=== PATIENT | male | born 1965 | race Caucasian/White ===

== ENCOUNTER 2018-05-10 09:07 | Outpatient (CLI) | payer BC, SELFPAY ==
--- NOTE | 2018-05-10 08:59 | DI.RAD_ITS ---
SYMPTOM/DIAGNOSIS: ANNUAL F/U TKA RIGHT KNEE: The patient is status post TKA. The prosthesis in excellent position. Surrounding bone intact with no evident interval change when compared with prior images.
== END 2018-05-10 09:27 ==
PROVIDERS: PCP Family Medicine; Visit Provider Student in an Organized Health Care Education/Training Program
DX: Z96.651 Presence of right artificial knee joint (principal); Z47.1 Aftercare following joint replacement surgery
CPT/HCPCS: 73560

== ENCOUNTER 2018-11-28 12:13 | Outpatient (CLI) | payer BC, SELFPAY ==
[2018-11-28 13:59] LABS: Anion Gap 9.4 mmol/L (3-11); BUN 10 mg/dL (7-18); CO2 27.6 mmol/L (21.0-32.0); CREATININE 0.95 mg/dL (0.70-1.30); Calcium 8.3 mg/dL (8.5-10.1); Calculated LDL 102 mg/dL; Chloride 106 mmol/L (98-107); Cholesterol 160 mg/dL (50-200); Glucose 100 mg/dL (70-100); HDL Cholesterol 42 mg/dL (40-60); Potassium 3.6 mmol/L (3.5-5.1); Sodium 143 mmol/L (136-145); Triglyceride 84 mg/dL (30-150)
== END 2018-11-28 12:33 ==
PROVIDERS: PCP Family Medicine; Visit Provider Family Medicine
DX: I10 Essential (primary) hypertension (principal)
CPT/HCPCS: 36415; 80048; 80061

== ENCOUNTER 2019-03-08 12:43 | Day surgery (SDC) | payer BC, SELFPAY ==
[2019-03-08 13:03] VITALS: BP 152/102; PULSE 60; RESP 16; TEMP 36.5; O2SAT 100
[2019-03-08] MEDS: Lactated Ringers 1,000 ML 80 ML IV (13:14)
--- NOTE | 2019-03-08 14:31 | BOWEL_PTH ---
PATIENT: Serafin Mayes LOC: [facility] U#:[id number] AGE/SX: 53/M ROOM: RE03/08/[address]: Cyn Harvey : 1965 BED: DIS: 03/08/2019 SPEC #: [id number] RECD: 03/08/19 17:15 STATUS: JEB REJaneth #: [id number] ADILIA: 03/08/19 14:[address]: Cyn Harvey DEPT: Surgical Specimen RECD BY: Diana Henry ENTERED: 03/08/19 17:20 SP TYPE: Bowel OTHR DR: Sebastian Brand MD Tissues: 1 - BIOPSY BOWEL Procedures: GROSS AND MICRO LEVEL 4 Comments: [id number]
--- NOTE | 2019-03-08 14:39 | W.COLOREPORT ---
Date of service: 03/08/19 Time of Service: 14:39 Colonoscopy Report Date of procedure: 03/08/19 Pre-op diagnosis general: crc screen Post-op diagnosis procedure note: other (diverticula. sm polyp in rectum ) Procedure: CE bx of rectum Surgeon: Cyn Harvey Anesthesia proc note operative: GETA Estimated blood loss (mL): 0 Pathology: other Complications: None Prep: Miralax/Dulcolax Retraction Time: 10 mins Procedure Description: After informed consent was obtained the patient was taken to the procedure room and placed in a left decubitous position. Monitors were applied and a time out was done. The patients name, date of , procedure, allergies to medications and metal in their body was reviewed. The patient was then sedated. Once sedated and comfortable a rectal exam was done. External exam was normal. Internal exam revealed a normal sphincter tone and no palpable masses. The prostate nl. The scope was then introduced and retrofelexed. No internal hemorrhoids were identified. The scope was then advanced to the cecum w/out difficulty. The TI and appendiceal orifice were identified. The prep was good. The scope was then slowly retracted over 10 minutes back into the rectum. No AVMs were identified. The mucosa was pink and healthy. He does have a few small scattered diverticuli in the sigmoid colon. There is no signs of active bleeding or infection. He did have one small polyp that was noted in the rectum. This was visualized under NBI, and there was some question of increased vascularity, so a biopsy was performed and it was removed. The specimen history retrieved and passed off the field. No bleeding was noted. The scope was removed and the patient was woken up and taken back to Same day surgery in stable condition. The patient tolerated the procedure well and there were no immediate complications. Follow up: The patient should follow up in 5-10 yrs- path pd, unless they develop changes in bowel habits or other new gastrointestinal complaints.
--- NOTE | 2019-03-08 14:42 | W.PM.DSUDISC ---
Discharge Plan Disposition Patient Disposition: HOME Condition: Good Discharge Details Reason For Visit: colon scope Attending Provider: Cyn Harvey Primary Care Provider: Sebastian Brand Home Meds and New Rx's Prescriptions: Continued amlodipine-benazepril 10-40 mg capsule 1 cap PO DAILY Qty: 90 RF: 4 metoprolol tartrate 50 mg tablet 50 mg PO BID Qty: 180 RF: 4 Discontinued polyethylene glycol 3350 17 gram/dose powder 238 g PO ONCE Qty: 238 RF: 0 bisacodyl [Dulcolax (bisacodyl)] 5 mg tablet,delayed release (DR/EC) 5 mg PO ONCE Qty: 4 RF: 0 Discharge Instructions Instructions: High Fiber Diet (GEN), Diverticulosis Diet (GEN), Diverticulosis (GEN) Additional Instructions: Findings: minor diverticula sm polyp in rectum removed- will send a letter w/ results in 2-3 wks Follow up: repeat scope in 5-10 yrs path pd. Please call if you develop: fevers >101.5 Nausea or Vomiting Abdominal pain that is not transient DAY SURGERY UNIT POST COLONOSCOPY INSTRUCTIONS 1. Because there will be medication in your system for the next 24 hours, you may feel a little sleepy. Your coordination will be affected. Therefore: a. Do not drive or operate dangerous equipment for 24 hours. b. Do not drink alcohol beverages for 24 hours (not even beer). c. Plan to go home and rest for the day. 2. Generally there are no restrictions on your activity after a day or so has gone by, but you may feel a bit fatigued for a few days. 3 After you arrive home you may have a light meal and return to a normal diet as you can tolerate it without feeling sick to your stomach. 4. After surgery, you may feel pain or discomfort. This should be only transient, but if it persists please contact your doctor. 5. If there are any questions regarding the findings of your procedure, please feel free to contact your doctor. 6. If you are unable to contact your doctor with a problem, contact the hospital at [phone]. 7. Continue all your regular medications unless directed otherwise. I understand the above instructions and have no questions. Signature of Patient or Responsible Adult Escort Date/Time Name of Responsible Adult Escort Signature of Nurse Date/Time Activity:: No strenuous activity, no lifting over 20 pounds, no driving x24 hours. Diet:: small light meals x24 hours Discharge Orders Discharge Orders: Discharge Order (Routine); Ordered 03/08/19 Ordered By: Cyn Harvey DS: Diagnosis Discharge Diagnosis (1) Diverticula of colon: Status: Acute
[2019-03-08 15:08] VITALS: BP 143/92; PULSE 55; RESP 16; TEMP 36.2; O2SAT 100
== END 2019-03-08 15:50 | disposition home or self-care (01) ==
PROVIDERS: PCP Family Medicine; Visit Provider Surgery
PROC: 0DJD8ZZ Inspection of Lower Intestinal Tract, Via Natural or Artificial Opening Endoscopic (ICD-10-PCS; CPT 45378; principal; 2019-03-08 13:45)
DX: Z12.11 Encounter for screening for malignant neoplasm of colon (principal); K57.30 Diverticulosis of large intestine without perforation or abscess without bleeding; I10 Essential (primary) hypertension; K62.1 Rectal polyp
CPT/HCPCS: 45380; 88305; J2704

== ENCOUNTER 2019-04-22 04:23 | Emergency (ER) | payer BC, SELFPAY ==
[2019-04-22] VITALS (16 sets, daily range): BP systolic 130–159; BP diastolic 85–96; PULSE 61–72; RESP 15–20; TEMP 35.2–36.9; O2SAT 96–98
--- NOTE | 2019-04-22 04:15 | DI.CT_ITS ---
EXAM: CT THORAX ABD/PEL CTA CLINICAL HISTORY: chest and abdominal pain TECHNIQUE: CT angiography of the chest, abdomen and pelvis was performed with bolus infusion of 125 cc of Omnipaque 350. Axial CT angiography was performed with multi-slice acquisition and multi-planar and/or 3D reconstruc tions. COMPARISON: ABD PELVIS WITH CONTRAST from 06/12/2017 FINDINGS: The lungs are clear with incidental 3 millimeter right upper lobe pulmonary nodule, no follow up rec ommended in a low risk individual. No pleural effusion. No evidence of pulmonary embolic disease. No thoracic aortic dissection. No pleural effusion. No mediastinal or hilar adenopathy. Tracheobro nchial tree appears intact. Small, low-attenuation stable hepatic lesions are noted, unchanged from 06/12/2017. Small presumed b ilateral renal cysts noted. No other focal hepatic or renal abnormality seen. Gallbladder and bile ducts are CT normal. Pancreas is unremarkable. Spleen shows unremarkable early arterial phase patte rn of enhancement. No abdominal aortic aneurysm or dissection. Major branches of the abdominal aorta appear normal. No abdominal or pelvic adenopathy. Normal appendix. No significant abdominal wall hernia. No focal b owel pathology. Question increased perivesical/Mahsa prostatic increased fat attenuation, possible inflammatory proces s, please correlate clinically. IMPRESSION: No evidence of acute vascular abnormality of the chest, abdomen or pelvis.
--- NOTE | 2019-04-22 04:29 | ED.GENADUL_ITS ---
Discharge Plan Disposition Patient Disposition: HOME Condition: Stable Discharge Details Chief Complaint: Chest Pain Clinical Impression: Chest pain Primary Care Provider: Sebastian Brand ED Provider: Jeferson Toscano Home Meds and New Rx's Prescriptions: New famotidine 20 mg tablet 20 mg PO DAILY Qty: 14 RF: 0 Continued amlodipine-benazepril 10-40 mg capsule 1 cap PO DAILY Qty: 90 RF: 4 metoprolol tartrate 50 mg tablet 50 mg PO BID Qty: 180 RF: 4 Discharge Instructions Instructions: Chest Pain (ED) Additional Instructions: Please follow-up for stress testing as we discussed. The diagnostic imaging service asks that you hold your metoprolol for 24 hours prior to the test. We will ask our care management team to make you a follow-up appointment with Dr. Brand in clinic. Take famotidine as prescribed for 2 weeks. Your blood work and ekg's did not reveal any findings to suggest a heart attack. The cat scan only showed inflammation around the bladder, please follow up with your primary care provider within a week for the chest pain and inflammation if you have severe worsening pain, feel more ill or have worsening shortness of breath return to the emergency department Medical Decision Making <Feliberto López MD - Last Filed: 04/22/19 07:29> 53 yo male with hx of htn, no prior cardiac history, former smoker who quit 28 years ago, who comes in with chest pain and epigastric pain that woke him up from sleep an hour and a half ago. He had similar pain to this a few years ago per patient and had a negative workup. Denies any recent fevers, cough, shortness of breath. HE states the pain is like a presure but also feels like he has gas. He has epigastric tenderness without guarding otherwise no tenderness in the abdomen. Speaking in full sentences and appearsin no distress, HD stable. His heart score is 3, ekg unremarkable, will send troponin. He has no hypoxia, tachycardia or evidnece of dvt on exam so doubt PE. Will obtain CTA to eval for possible dissection, and evaluate for abdominal pathology such as cholecystitis and sbo though exam not consistent with this pt remains stable and feels better after gi cocktail and asa. labs unremarkable and troponin negative. I offered admission for observation but patient declined. HE is willing to stay to have second troponin. Will continue to monitor here. His CTA only showed nonspecific stranding aroud the bladder. He denies any urina ry symptoms, will obtain ua and urine culture, advised patient of these findings and that he needs to f/u with his pcp for further eval if UA here negative pt signed out to oncoming provider to f/u on repeat troponin, pt remains stable without symptoms, drinking without issues Differential Diagnosis Differential Diagnosis: acs, dissection, pancreatitis Medical Records Medical records reviewed: Yes I reviewed the patient's medical records. Imaging Data Radiologic Study: Attestation: I personally reviewed and interpreted this imaging study as follows: Imaging: CT Scan Radiologist's impression: IMPRESSION: 1. No aortic aneurysm or dissection. 2. Stranding of fat about bladder, seminal vesicles and prostate consistent with the presence of inflammatory or infectious process involving 1 or all 3 of the organs. The most likely etiologies would be cystitis and prostatitis Lab Data Lab results reviewed: Yes I reviewed the patient's lab results. ECG Data Attestation: I personally reviewed and interpreted this ECG (s) as follows: Prior ECG tracings: not available for review Interpretation: sinus rhythm, rate of 60, pr 160qtc 404, no acute st t wave ischemic findings <Jeferson Toscano MD - Last Filed: 04/22/19 08:36> Received signout from Dr. López. Please see his note regarding details of the history, presentation, plan of care. Repeat EKG obtained at 7:57 AM. Normal sinus rhythm, rate of 67, the QRS is narrow, there is no ST segment elevation, the QTC is 422. Repeat troponin obtained and negative. Patient's pain improved with treatment for GERD. As per Dr. López, the patient should follow-up regarding miscellaneous findings on final CT report. Discussed with him that he indeed has cardiac risk factors and is been greater than 10 years since his last stress test which he states was in [facility]. Will order an outpatient stress test for him, we will ask him to follow-up with Dr. Brand in clinic for recheck and results of stress test. I will place him on famotidine for 2 weeks for GERD symptoms. He understands to seek urgent reevaluation for any recurrence of symptoms. HPI <Feliberto López MD - Last Filed: 04/22/19 07:29> General Mode of arrival: ambulatory . Date/Time Provider Initiated Documentation: 04/22/19 04:24 . Limitations to Documentation: no limitations . Information obtained by: patient . History of Present Illness 53 year old M presents to the emergency department with the chief complaint of chest pain, described as moderate, Quality is described as aching, Patient reports no radiation. Patient started experiencing this minute(s) (90) and it has been constant. No relieving factors improve symptom(s), No exacerbating factors reported . Patient notes no other symptoms.. Patient did receive the following treatments prior to arrival, NSAID Related Data Home Medications Medication Instructions Recorded Confirmed amlodipine 10 mg-benazepril 40 mg 1 cap PO DAILY #90 tab-cap 10/31/18 04/22/19 capsule metoprolol tartrate 50 mg tablet 50 mg PO BID #180 tab-cap 10/31/18 04/22/19 famotidine 20 mg PO DAILY #14 tab 04/22/19 Previous Rx's Medication Instructions Recorded amlodipine 10 mg-benazepril 40 mg 1 cap PO DAILY #90 tab-cap 10/31/18 capsule metoprolol tartrate 50 mg tablet 50 mg PO BID #180 tab-cap 10/31/18 famotidine 20 mg PO DAILY #14 tab 04/22/19 Allergies Allergy/AdvReac Type Severity Reaction Status Date / Time No Known Allergies Allergy Unverified 03/08/19 13:03 General Stated Complaint: Chest Pain JOSE LUIS: 2 Review of Systems <Feliberto López MD - Last Filed: 04/22/19 07:29> All systems reviewed & are unremarkable except as noted in HPI and below Constitutional Constitutional: Denies chills, Denies fever(s) and Denies weakness Cardiovascular Cardiovascular: Denies dyspnea Respiratory Respiratory: Denies cough and Denies dyspnea Gastrointestinal Gastrointestinal: Denies nausea and Denies vomiting Musculoskeletal Musculoskeletal: Denies joint swelling Neurologic Neurologic: Denies weakness Psychiatric Psychiatric: Denies depression [facility] <Feliberto López MD - Last Filed: 04/22/19 07:29> Medical History (Updated 04/22/19 @ 06:04 by Feliberto López MD) Chest pain (Resolved 06/27/12) atypical Diverticula of colon (Acute) Essential hypertension (Chronic 11/24/12) Herpes simplex (Resolved) Surgical History Repair, ACL (~12/1996) [place] replacement of right knee Replacement of total knee joint (02/17/17) (R) DR. RUSSELL Status post repair of anterior cruciate ligament (Inactive) Status post total right knee replacement (Resolved) DOS: 02/17/17 Dr. Russell Family History (Updated 11/01/18 @ 15:18 by Ahsan Gonzales) Mother , 63 Cancer Father , 63 Essential hypertension Heart disease Pancreatic cancer Sister No problems noted. Sister No problems noted. Sister Leukemia Brother No problems noted. Brother Hyperlipidemia Maternal Grandfather , 72 Heart disease Paternal Grandfather , 70 Neoplasm Maternal Grandmother , 93 Diabetes Paternal Grandmother , 90 Diabetes Son Asthma Daughter Depression Brother No problems noted. Social History Smoking/Tobacco Use Status: Former Tobacco Use Alcohol Intake: current Alcohol Intake frequency: a few times a week Alcohol type: beer Drug use: Never Substance use type: does not use Caregiver/Support person: No Household members: children Housing: other Details: 2 Communication Needs: None Do you need help understanding health information?: Never current occupation: [employer] Pets and animals: Yes Pets and animals: cat(s) Sexually active: Yes Do you think of yourself as: straight/heterosexual Current gender identity: male What is your relationship status?: How often do you talk on the phone with friends or family?: three or more times per week How often do you get together with friends or relatives?: three or more times per week How often do you attend lutheran or presybeterian services?: 1-3 times per year Do you belong to any clubs or organized social groups?: yes Panel score (0-1 are the most socially isolated patients): 2 What type of physical activity do you participate in: walking Duration: 45-60 minutes/day Frequency: does not exercise Alana/Anglican: Adventism Special alana needs: No Seatbelt use: always Helmet use: Yes Helmet use: always Drive intox or ride w/intox auto driver: No Do you feel safe at home: Yes Do you feel safe in your relationship?: Yes Exam <Feliberto López MD - Last Filed: 04/22/19 07:29> Const General: no acute distress Orientation: alert HENFIORELLA Head: normal to inspection Ears: external ears normal General nose exam: external nose normal Mouth: moist mucous membranes Eyes General: appearance normal, both eyes and all related structures Neck Neck: normal visual inspection Resp Effort & Inspection: normal respiratory effort and able to speak in complete sentences Cardio Rate: regular rate GI Palpation: soft Skin General skin exam: no rashes or lesions noted Neuro General: alert and oriented x3 Extrem General: normal to inspection Psych Mental Status: mental status grossly normal Course <Feliberto López MD - Last Filed: 04/22/19 07:29> Vital Signs Vital signs: Vital Signs Temperature 35.2 C L 04/22/19 04:26 Pulse 72 04/22/19 04:26 Respiratory Rate 16 04/22/19 04:26 Blood Pressure 159/96 H 04/22/19 04:26 Pulse Oximetry 98 04/22/19 04:26 Temperature 35.2 C L 04/22/19 04:26 Temperature Source Tympanic 04/22/19 04:26 Pulse 72 04/22/19 04:26 Respiratory Rate 16 04/22/19 04:26 Blood Pressure 159/96 H 04/22/19 04:26 Blood Pressure Position Sitting 04/22/19 04:26 Pulse Oximetry 98 04/22/19 04:26 Oxygen Delivery Method Room Air 04/22/19 04:26 Oxygen Flow Rate 0 04/22/19 04:26 Pain Level 8 04/22/19 04:26 Sign Out <Feliberto López MD - Last Filed: 04/22/19 07:29> Sign Out Data: Sign Out Comment: follow up on second troponin if negative and he's stable d/c and pcp follow up Last updated by Feliberto López MD at 04/22/19 07:30
[2019-04-22] MEDS: Aspirin 81 MG CHEW 324 MG CH (04:37)
[2019-04-22] MEDS: Normal Saline Flush 10 ML SYR IVP ×2 (04:41→08:15)
[2019-04-22 05:01] LABS: Abs Immature Grans 0.01 k/cumm (0.0-0.09); Absolute Basophil Count 0.03 k/cumm (0.0-0.2); Absolute Eosinophil Count 0.18 k/cumm (0.0-0.7); Absolute Lymphocyte Count 1.47 k/cumm (1.2-3.4); Absolute Monocyte Count 0.75 k/cumm (0.11-0.7); Absolute Neutrophil Count 4.91 k/cumm (1.2-6.7); Basophils % 0.4; Eosinophils % 2.4; HCT 33.8 % (40.0-50.0); HGB 10.4 g/dL (13.5-17.5); Immature Grans % 0.1 %; Mean Corp. HGB Concentration 30.8 g/dL (32.0-36.0); Mean Corpuscular Hemoglobin 24.8 pg (27.0-33.0); Mean Corpuscular Volume 80.7 fL (80-95); Mean Platelet Volume 9.7 fL (8.0-11.0); Monocytes % 10.2; Neutrophils % 66.9; Platelet Count 284 x1000/uL (130-400); RBC 4.19 m/cumm (4.50-6.00); RBC Distribution Width 15.3 % (11.8-14.1); White Blood Cell Count 7.35 k/cumm (4.4-10.8)
[2019-04-22 05:15] LABS: ALT 28 U/L (16-63); AST 30 U/L (15-37); Albumin 3.2 g/dL (3.4-5.0); Alkaline Phosphatase 54 U/L (46-116); Anion Gap 7.9 mmol/L (3-11); Bilirubin, Total 0.3 mg/dL (0.2-1.0); CO2 28.1 mmol/L (21.0-32.0); CREATININE 0.98 mg/dL (0.70-1.30); Calcium 8.2 mg/dL (8.5-10.1); Chloride 106 mmol/L (98-107); Glucose 170 mg/dL (74-106); Lipase 270 U/L (73-393); Magnesium 1.8 mg/dL (1.8-2.4); Potassium 3.4 mmol/L (3.5-5.1); Sodium 142 mmol/L (136-145); Total Protein 6.9 g/dL (6.4-8.2); Troponin I < 0.05 ng/Ml (<0.06)
[2019-04-22 05:24] LABS: BUN 14 mg/dL (7-18)
[2019-04-22 05:29] LABS: INR 1.1 (0.9-1.1); Prothrombin Time 10.7 sec (9.3-11.0)
[2019-04-22] MEDS: Omnipaque 350 MG/ML 100 ML BTL IJ (05:29)
[2019-04-22] MEDS: Omnipaque 350 MG/ML 50 ML BTL IJ (05:30)
--- NOTE | 2019-04-22 05:37 | DI.VRAD_ITS ---
PROCEDURE INFORMATION: Exam: CT Angiography Chest With Contrast Exam date and time: 04/22/2019 5:01 AM Age: 53 years old Clinical indication: Chest pain; Type not specified; Generalized; Patient HX: Chest and abdominal pain TECHNIQUE: Imaging protocol: Computed tomographic angiography of the chest with intravenous contrast. 3D rendering: MIP and/or 3D reconstructed images were created by the technologist. COMPARISON: No relevant prior studies available. FINDINGS: Pulmonary arteries: Main pulmonary artery normal in caliber. No pulmonary artery filling defects. Aorta: No aortic aneurysm or dissection. Lungs: There is minimal bibasilar atelectasis. Pleural space: No pneumothorax. No pleural effusion. Heart: Unremarkable. No cardiomegaly. No pericardial effusion. Lymph nodes: Unremarkable. No enlarged lymph nodes. Bones/joints: The spine demonstrates mild degenerative changes at multiple levels. Soft tissues: Unremarkable. IMPRESSION: No acute findings. PROCEDURE INFORMATION: Exam: CT Angiography Abdomen and Pelvis With Contrast Exam date and time: 04/22/2019 5:01 AM Age: 53 years old Clinical indication: Chest pain; Type not specified; Generalized; Patient HX: Chest and abdominal pain TECHNIQUE: Imaging protocol: Computed tomographic angiography of the abdomen and pelvis with intravenous contrast material. 3D rendering: MIP and/or 3D reconstructed images were created by the technologist. COMPARISON: No relevant prior studies available. FINDINGS: Aorta: No aortic aneurysm. No aortic dissection. Atherosclerosis. Celiac trunk and mesenteric arteries: No occlusion or significant stenosis. Renal arteries: No occlusion or significant stenosis. Right iliac arteries: No occlusion or significant stenosis. Left iliac arteries: No occlusion or significant stenosis. Liver: Subcentimeter, too small to characterize hypoenhancing lesions in each lobe. 1.2 cm cyst in right lobe. Gallbladder and bile ducts: Gallbladder appears normal. No gallstones. No gallbladder wall thickening. No biliary ductal dilatation. Pancreas: Unremarkable. No mass. No ductal dilation. Spleen: Unremarkable. No splenomegaly. Adrenals: Unremarkable. No mass. Kidneys and ureters: 2 cm simple cyst right kidney. 1.2 cm simple cyst left kidney. Too small to characterize subcentimeter hypoenhancing lesion in left kidney. No solid mass. No hydronephrosis. Stomach and bowel: Unremarkable. No obstruction. No mucosal thickening. Colonic diverticula. Appendix: No evidence of appendicitis. Intraperitoneal space: Unremarkable. No free air. No significant fluid collection. Lymph nodes: Unremarkable. No enlarged lymph nodes. Bladder: No bladder wall thickening. Subtle perivesical fat stranding. No bladder calculi Reproductive: Prostate top normal in size with subtle heterogeneous enhancement of parenchyma. Subtle stranding of fat about seminal vesicles and prostate. Bones/joints: No acute fracture. No dislocation. Soft tissues: There is an uncomplicated fat-containing umbilical hernia. IMPRESSION: 1. No aortic aneurysm or dissection. 2. Stranding of fat about bladder, seminal vesicles and prostate consistent with the presence of inflammatory or infectious process involving 1 or all 3 of the organs. The most likely etiologies would be cystitis and prostatitis. Dictated and Authenticated by: Dustin Robbins MD. Ordering:ARACELI Dao MD
[2019-04-22 06:05] LABS: Bilirubin Negative (Negative); Blood Negative (Negative); Clarity Clear (Clear); Glucose 100 mg/dL (Negative); Ketones Negative (Negative); Leukocyte Esterase Negative (Negative); Nitrite Negative (Negative); Specific Gravity 1.015 (1.005-1.025); Urobilinogen 0.2 EU/dL (Up TO 0.2)
[2019-04-22 08:07] LABS: Troponin I < 0.05 ng/Ml (<0.06)
[2019-04-22] MEDS: Pantoprazole 40 MG VIAL IVP (08:13)
== END 2019-04-22 08:48 | disposition home or self-care (01) ==
PROVIDERS: Emergency Medicine; Emergency Provider Emergency Medicine; PCP Family Medicine
DX: R07.89 Other chest pain (principal); R93.41 Abnormal radiologic findings on diagnostic imaging of renal pelvis, ureter, or bladder; I10 Essential (primary) hypertension
CPT/HCPCS: 74177; 80053; 83690; 93005; 96374; 99285; 81003; 83735; 84484; 85025; 85610; 85730; 87086; 93010; 99284; J3490; Q9967

== ENCOUNTER 2019-05-01 01:26 | Outpatient (CLI) | payer BC, SELFPAY ==
--- NOTE | 2019-05-01 08:00 | ETT_ITS ---
APPROVED REPORT Exam: Exercise Treadmill Patient Location: Out-Patient Room/Bed: Stress Nurse: Daja Freitas RN BMI: 34.84 Baseline Rhythm: Sinus Rhythm Indications: Chest Pain. Medical History Medical History: Angina, HTN Cardiac Medications: Metoprolol. Amlodipine-Benazepril., Allergies: No known drug allergies Cardiac Risk Factors: HTN, FHX of CAD Pretest Chest Pain Characteristics: Non-exertional Chest pain Exercise History: Physically active Lung Sounds: Clear to auscultation Heart Sounds: Regular Stress Test Details Test: Exercise stress testing was performed using a Lopez protocol. Rest Stress HR Resting HR Supine: 61 bpm Max Heart Rate (APMHR): 169 bpm Resting HR Standin bpm Target HR (85% APMHR): 143 bpm Max HR Achieved: 174 bpm % of APMHR: 102 HR response to stress: Normal HR response to stress BP Resting BP Supine: 160/100 mmHg Resting BP Standin/100 mmHg Max BP: 160/112 mmHg Recovery BP: 160/98 mmHg BP response to stress: Normal blood pressure response to stress. Comment: Hypertension at pre-exercise baseline ECG Resting ECG: Sinus Rhythm Stress ECG: Sinus Tachycardia ST Change: No significant ST segment changes Arrhythmia: VPC's Recovery ECG: Sinus Rhythm Recovery ST Change: No significant ST segment changes Recovery Arrhythmia: None Clinical Reason for Termination: Fatigue, Target HR Achieved Stress Symptoms: General Fatigue Exercise duration: 10 min00 sec Highest Stage Reached: Stage 4: 4.2 mph at 16% grade. Exercise capacity: 11.81 METs Functional Capacity: Average Capacity Scale: Active Angina Score: None Stress ECG Conclusion 1. The patient exercised for 10 minutes (12 METS) 2. Exercise was stopped due to general fatigue. Rate-pressure product was 28,000. 3. There were no ischemic changes on the ECG during exercise. 4. The Barragan Score ( 10) estimates an annual cardiovascular mortality of 0% and a five year survival o f 96%. Using the Barragan Score there is a low probability of any angiographic coronary disease. Protocol Used: Lopez Protocol Stress Test Summary STAGE Time (mins) Speed (mph) Grade (%) HR BP SYMPTOMS METS Supine 61 160/100 Standing 66 140/100 1 3 1.7 10 108 150/110 4.6 2 6 2.5 12 128 152/110 7 3 9 3.4 14 162 160/112 10.2 1 min recovery 108 160/104 4 min recovery 128 180/98 7 min recovery 86 160/98
== END 2019-05-01 01:46 ==
PROVIDERS: PCP Family Medicine; Visit Provider Emergency Medicine
DX: R07.9 Chest pain, unspecified (principal); I20.9 Angina pectoris, unspecified; Z82.49 Family history of ischemic heart disease and other diseases of the circulatory system; I10 Essential (primary) hypertension
CPT/HCPCS: 93017

== ENCOUNTER 2019-11-13 03:45 | Outpatient (CLI) | payer BC, SELFPAY ==
[2019-11-13 11:23] LABS: Anion Gap 7.7 mmol/L (3-11); BUN 10 mg/dL (7-18); CO2 27.3 mmol/L (21.0-32.0); CREATININE 0.86 mg/dL (0.70-1.30); Calcium 8.5 mg/dL (8.5-10.1); Chloride 107 mmol/L (98-107); Glucose 101 mg/dL (74-106); Potassium 3.6 mmol/L (3.5-5.1); Sodium 142 mmol/L (136-145)
== END 2019-11-13 04:05 ==
PROVIDERS: Visit Provider Family Medicine
DX: I10 Essential (primary) hypertension (principal)
CPT/HCPCS: 36415; 80048

== ENCOUNTER 2019-12-14 14:27 | Emergency (ER) | payer BC, SELFPAY ==
[2019-12-14 14:31] VITALS: BP 176/98; PULSE 63; RESP 16; TEMP 36; O2SAT 100
--- NOTE | 2019-12-14 14:51 | W.ED.GENAD ---
Discharge Plan Disposition Patient Disposition: HOME Condition: Fair Discharge Details Clinical Impression: Abdominal pain, Pancreatitis Primary Care Provider: Nallely Limon ED Provider: Marni Laurent Home Meds and New Rx's Prescriptions: Continued amlodipine-benazepril 10-40 mg capsule 1 cap PO DAILY Qty: 90 RF: 4 metoprolol tartrate 50 mg tablet 50 mg PO BID Qty: 180 RF: 4 famotidine 20 mg tablet 20 mg PO DAILY Qty: 30 RF: 3 spironolactone 25 mg tablet 25 mg PO BID Qty: 180 RF: 3 hydrochlorothiazide 12.5 mg tablet 12.5 mg PO QAM Qty: 30 RF: 1 Discharge Instructions Instructions: Pancreatitis (ED), Clear Liquid Diet (ED) Additional Instructions: As discussed, I am concerned that you may developing a mild pancreatitis. At this point, I would like you to stick with a clear liquid diet. Attached is further information on how to succeed with this diet. Please continue with this until pain is completely subsided. You may then slowly advance her diet. I have ordered outpatient ultrasound that should be completed Tuesday morning. However, if in the interim you develop increased pain, fever/chills, inability to hydrate, vomiting or other new/worsening symptoms please seek care urgently once again. I would like you to follow-up with your primary care next week for reevaluation. Referrals: Nallely Limon, GRANULATOR OPERATOR [Primary Care Provider] - Discharge Data Discharge Date/Time-TO BE ENTERED AT DEPARTURE: 12/14/19 18:15 Medical Decision Making <SHERMAN Brandt - Last Filed: 12/15/19 08:18> 54-year-old gentleman with history of alcohol use disorder, GERD, diverticula, hypertension, presents with epigastric pain that began earlier today associated with one episode of diarrhea. Clinically he appears well, nontoxic. Mild hypertension at 176/98. Pulse 63, respirations 16, afebrile, O2 sat 100% on room air. I do believe this is likely GERD, gastritis, alcoholic gastritis, etc. Very well could be peptic ulcer disease. Less likely ACS. Discussed options with patient. Will give a dose of Mylanta and lidocaine, obtain routine laboratory values including a single troponin and EKG. Initial laboratory values are unremarkable for obvious emergent process. White blood cell count of 7.55 hemoglobin 12.4 hematocrit 40.3 platelet count 317. Electrolytes unremarkable. Renal function reveals a creatinine of 1.02 with a GFR greater than 60. Lipase slightly elevated at 409. Certainly could have mild pancreatitis however he does not have an acute abdomen. Urinalysis pending. Troponin pending. Upon reevaluation patient reports no significant change of his symptoms with Mylanta and lidocaine, awaiting IV Protonix. At time of signout awaiting reassessment once the Protonix is given. Also awaiting troponin. Medical Records Medical records reviewed: Yes I reviewed the patient's medical records. Lab Data Lab results reviewed: Yes I reviewed the patient's lab results. Lab results narrative: Laboratory Tests Range/Units 12/14/19 12/14/19 14:40 14:40 WBC (4.4-10.8) 10^3/uL 7.55 RBC (4.36-5.78) 10^6/uL 4.92 Hgb (13.5-17.5) g/dL 12.4 L Hct (40.0-50.0) % 40.3 MCV (80-95) fL 81.9 MCH (27.0-33.0) pg 25.2 L MCHC (32.0-36.0) % 30.8 L RDW (11.8-14.1) % 15.2 H Plt Count (130-400) 10^3/uL 317 MPV (8.0-11.0) fL 10.3 Immature Gran % 0.3 Neutrophils % 68.3 Lymphocytes % 18.3 Monocytes % 9.3 Eosinophils % 3.4 Basophils % 0.4 Nucleated RBC % % 0 Absolute Neutrophils (1.2-6.7) 10^3/uL 5.16 Absolute Lymphocytes (1.2-3.4) 10^3/uL 1.38 Absolute Monocytes (0.1-0.8) 10^3/uL 0.70 Absolute Eosinophils (0.0-0.7) 10^3/uL 0.26 Absolute Basophils (0.0-0.2) 10^3/uL 0.03 Sodium (136-145) mmol/L 137 Potassium (3.5-5.1) mmol/L 3.7 Chloride (98-107) mmol/L 101 Carbon Dioxide (21.0-32.0) mmol/L 29.2 Anion Gap (3-11) mmol/L 6.8 BUN (7-18) mg/dL 12 Creatinine (0.70-1.30) mg/dL 1.02 Estimated GFR/1.73 m2 (mL/min/1.73m2) >= 60.00 Glucose (74-106) mg/dL 121 H Calcium (8.5-10.1) mg/dL 9.1 Total Bilirubin (0.2-1.0) mg/dL 0.5 AST (15-37) U/L 37 ALT (16-63) U/L 41 Alkaline Phosphatase (46-116) U/L 60 Total Protein (6.4-8.2) g/dL 8.2 Albumin (3.4-5.0) g/dL 3.7 Lipase (73-393) U/L 409 H ECG Data Attestation: I personally reviewed and interpreted this ECG (s) as follows: Interpretation: Please see official report by Dr. Ramírez. Sinus bradycardia, ventricular rate of 48. No STEMI. <SHERMAN Olivares - Last Filed: 12/14/19 23:58> Care transition myself from Ron Lanier PA-C with troponin pending. Troponin is less than 0.05. Reevaluated the patient. Reports his pain has persisted. He is now quite tender on exam across the upper abdomen, maximal on the RUQ. Plan for imaging at this time with the change. Chart review shows that GI cocktail typical relieves his pain. This was unsuccessful today. CT reviewed by radiologist: FINDINGS: Lungs: There is subpleural atelectasis of the dependent portions of the lungs. The visualized portions of the lung bases demonstrate no acute disease. Mediastinal space: A small hiatal hernia is present. Liver: There is moderate enlargement of the liver. Scattered fluid density liver lesions are appreciated, the largest in the right hepatic lobe measuring 1.4 cm. These are most in favor with simple hepatic cysts. No follow-up is recommended at this time. Gallbladder and bile ducts: The gallbladder appears unremarkable, however there is mild intra and extrahepatic biliary ductal dilation with the CBD measuring up to 1 cm. Pancreas: Normal. No ductal dilation. Spleen: Normal. No splenomegaly. Adrenals: Normal. No mass. Kidneys and ureters: Bilateral simple renal cysts are appreciated, the largest in the right kidney measuring up to 2.2 cm. No follow-up is recommended at this time. No acute renal findings. No concerning renal lesions. Stomach and bowel: Unremarkable. No obstruction. No mucosal thickening. Appendix: No evidence of appendicitis. Intraperitoneal space: Unremarkable. No free air. No significant fluid collection. Vasculature: DiverticulosisThe vasculature demonstrates diffuse moderate atherosclerotic calcification. Lymph nodes: Unremarkable. No enlarged lymph nodes. Urinary bladder: There is mild submucosal fat deposition noted throughout the urinary bladder wall. This most probably the chronic sequela of bladder outlet obstruction or chronic cystitis. Urinary bladder is otherwise unremarkable. Reproductive: The prostate demonstrates moderate nonspecific enlargement. The seminal vesicles are normal. Bones/joints: No acute skeletal pathology. Mild multilevel degenerative changes of the spine, as manifested by multilevel anterior osteophytes and multilevel decrease in intervertebral disc space. Soft tissues: Unremarkable. IMPRESSION: 1. Negative for acute abdominopelvic pathology. 2. Biliary findings are of uncertain etiology, however correlation with bilirubin levels or ultrasound may be entertained if clinically warranted. 3. Incidental findings as detailed above. Dictated and Authenticated by: Reece Quigley MD. Consulted with Dr. Calderon regarding the patient's slightly elevated lipase as well as the common bile dilation. She advised that the patient likely has a mild pancreatitis likely from alcohol consumption. She advised that this is likely what is causing the ductal dilation. She advised outpatient ultrasound and states that this can wait till Tuesday. She did not feel the patient warranted admission. I do agree with assessment based on imaging, labs and patient exam. I reevaluated the patient discussed these findings with him. I did advise outpatient ultrasound. Patient I discussed clear liquid diet. Dr. Calderon advised that he may begin to return his diet to normal once pain has resolved. I did discuss the potential complications associated with pancreatitis with the patient. I encourage close follow-up and return with any new or worsening symptoms. He will abstain from alcohol. All his questions and concerns were addressed and he is in agreement this plan. HPI <SHERMAN Brandt - Last Filed: 12/15/19 08:18> General Mode of arrival: ambulatory. Date/Time Provider Initiated Documentation: 12/14/19 14:41. Limitations to Documentation: no limitations. Information obtained by: patient. HPI Narrative: This is a 54-year-old gentleman with history of alcohol use disorder, GERD, diverticulosis, hypertension, presenting to the ER today for diffuse upper abdominal pain, worse in the epigastric region. He reports 1 bout of loose stool earlier today. He states he had very similar symptoms nearly 5 years ago,, intermittent since then, most recently 4 months ago. He states that they have checked my heart and it is okay. He reports abdominal pain, and loose stool. He denies any fever, recent trauma, chest pain, shortness of breath, back pain, nausea, vomiting, black tarry stools, bright red blood in stools, dysuria. He reports that he drinks approximately a sixpack of beer nearly 5 days a week. He does not smoke. Denies drug use. He reports that the pain gets so severe that it causes him to sweat. Pain today began earlier this morning. In the past when he has had these similar symptoms he reports that antacids have helped him greatly. He tells me he had a normal colonoscopy back in January but has never had endoscopy. Related Data Home Medications Medication Instructions Recorded Confirmed amlodipine 10 mg-benazepril 40 mg 1 cap PO DAILY #90 tab-cap 11/06/19 12/14/19 capsule famotidine 20 mg tablet 20 mg PO DAILY #30 tab 11/06/19 12/14/19 metoprolol tartrate 50 mg tablet 50 mg PO BID #180 tab-cap 11/06/19 12/14/19 hydrochlorothiazide 12.5 mg tablet 12.5 mg PO QAM #30 tab 12/06/19 12/14/19 spironolactone 25 mg tablet 25 mg PO BID #180 tab 12/10/19 12/14/19 Previous Rx's Medication Instructions Recorded amlodipine 10 mg-benazepril 40 mg 1 cap PO DAILY #90 tab-cap 11/06/19 capsule famotidine 20 mg tablet 20 mg PO DAILY #30 tab 11/06/19 metoprolol tartrate 50 mg tablet 50 mg PO BID #180 tab-cap 11/06/19 hydrochlorothiazide 12.5 mg tablet 12.5 mg PO QAM #30 tab 12/06/19 spironolactone 25 mg tablet 25 mg PO BID #180 tab 12/10/19 Allergies Allergy/AdvReac Type Severity Reaction Status Date / Time No Known Allergies Allergy Verified 12/14/19 14:34 General Stated Complaint: Abd Prob JOSE LUIS: 3 Review of Systems <SHERMAN Brandt - Last Filed: 12/15/19 08:18> Constitutional Constitutional: Denies fever(s) ENT Ears, Nose, Mouth, and Throat: Denies neck pain Cardiovascular Cardiovascular: Denies chest pain and Denies dyspnea Respiratory Respiratory: Denies cough and Denies dyspnea Gastrointestinal Gastrointestinal: Reports abdominal pain, Denies melena, Denies hematochezia, Reports diarrhea, Denies nausea and Denies vomiting Genitourinary Genitourinary: Denies dysuria Musculoskeletal Musculoskeletal: Denies back pain and Denies neck pain Integumentary/Breasts Skin/Breast: Denies rash PFSH <SHERMAN Brandt - Last Filed: 12/15/19 08:18> Medical History Chest pain (06/27/12) atypical Diverticula of colon Essential hypertension (11/24/12) Grief Headache Herpes simplex Surgical History Repair, ACL (~12/1996) downing, fl-acl replacement of right knee Replacement of total knee joint (02/17/17) (R) DR. RUSSELL Status post repair of anterior cruciate ligament Status post total right knee replacement DOS: 02/17/17 Dr. Russell Family History Mother , 63 Cancer Father , 63 Essential hypertension Heart disease Pancreatic cancer Sister No problems noted. Sister , 40 No problems noted. Brother No problems noted. Brother Hyperlipidemia Maternal Grandfather , 72 Heart disease Paternal Grandfather , 70 Neoplasm Maternal Grandmother , 93 Diabetes Paternal Grandmother , 90 Diabetes Son Asthma Daughter Depression Brother No problems noted. Social History Smoking/Tobacco Use Status: Former Tobacco Use Alcohol Intake: current Alcohol Intake frequency: 3 or more drinks per day Alcohol type: beer Drug use: Never Substance use type: does not use Caregiver/Support person: No Household members: children Housing: apartment Communication Needs: None Do you need help understanding health information?: Never current occupation: [employer] Pets and animals: Yes Pets and animals: cat(s) Sexually active: Yes Do you think of yourself as: straight/heterosexual Current gender identity: male What is your relationship status?: How often do you talk on the phone with friends or family?: once per week How often do you get together with friends or relatives?: once per week How often do you attend synagogue or restoration services?: 1-3 times per year Do you belong to any clubs or organized social groups?: yes Panel score (0-1 are the most socially isolated patients): 1 What type of physical activity do you participate in: other Details: golf, bowling Duration: 15-30 minutes/day Frequency: 5-6 times per week Alana/Synagogue: Confucianist Special alana needs: No Seatbelt use: always Helmet use: Yes Helmet use: always Drive intox or ride w/intox rear load truck driver: No Do you feel safe at home: Yes Do you feel safe in your relationship?: Yes Exam <SHERMAN Brandt - Last Filed: 12/15/19 08:18> Const General: cooperative, healthy appearing, comfortable and no acute distress Orientation: alert and awake HENKY Head: normal to inspection, normocephalic and atraumatic Mouth: moist mucous membranes Eyes Conjunctivae: conjunctivae normal Sclera: sclerae normal Neck Neck: normal visual inspection, full ROM, trachea midline and supple Resp Effort & Inspection: normal respiratory effort and able to speak in complete sentences Auscultation: clear to auscultation bilaterally Cardio Rate: regular rate Rhythm: regular rhythm GI Inspection: normal to inspection Palpation: soft, not firm, no guarding, not rigid and tender in the epigastrum; with no rebound tenderness Auscultation: normal bowel sounds Back/Spine/Pelvis Back: No back tenderness Skin General skin exam: no rashes or lesions noted Neuro General: patient alert, patient awake, patient oriented x3, moves all extremities and no focal motor deficits Cognition: normal cognition Speech: speech normal Sensory Exam: no sensory deficits noted Extrem General: normal to inspection, full ROM, capillary refill normal, no pedal edema and no calf tenderness Psych Appearance: grossly normal Mental Status: mental status grossly normal Course <SHERMAN Brandt - Last Filed: 12/15/19 08:18> Vital Signs Vital signs: Vital Signs Temperature 36 C L 12/14/19 14:31 Pulse 63 12/14/19 14:31 Respiratory Rate 16 12/14/19 14:31 Blood Pressure 176/98 H 12/14/19 14:31 Pulse Oximetry 100 12/14/19 14:31 Temperature 36 C L 12/14/19 14:31 Temperature Source Skin 12/14/19 14:31 Pulse 63 12/14/19 14:31 Respiratory Rate 16 12/14/19 14:31 Respiratory Effort 12/14/19 14:35 Blood Pressure 176/98 H 12/14/19 14:31 Pulse Oximetry 100 12/14/19 14:31 Oxygen Delivery Method Room Air 12/14/19 14:31 Oxygen Flow Rate 0 12/14/19 14:31 Pain Level 6 12/14/19 14:31 Comment 12/14/19 14:31 Sign Out <SHERMAN Brandt - Last Filed: 12/15/19 08:18> Sign Out Data: Sign Out Comment: At time of signout pending troponin, Protonix, reevaluation. Last updated by Khris Lanier PA at 12/14/19 15:48
[2019-12-14] MEDS: Normal Saline 1,000 ML 1000 ML IV (14:58)
--- NOTE | 2019-12-14 15:00 | RT.EKG_ITS ---
APPROVED REPORT Exam: Resting ECG Patient Location: E HR:48 bpm ECG Measurements Heart Rate 48 AXIS [place] 173 P 18 QRSd 102 QRS 38 QT 452 T 51 QTc 405 Conclusion Sinus bradycardia...rate< 60 I have reviewed and interpreted ECG and agree with software generated interpretation.
[2019-12-14 15:06] LABS: Abs Immature Grans 0.02 10^3/uL (0.0-0.06); Absolute Basophil Count 0.03 10^3/uL (0.0-0.2); Absolute Eosinophil Count 0.26 10^3/uL (0.0-0.7); Absolute Lymphocyte Count 1.38 10^3/uL (1.2-3.4); Absolute Neutrophil Count 5.16 10^3/uL (1.2-6.7); Basophils % 0.4; Eosinophils % 3.4; HCT 40.3 % (40.0-50.0); HGB 12.4 g/dL (13.5-17.5); Immature Grans % 0.3; Lymphocytes % 18.3; MCH 25.2 pg (27.0-33.0); MCHC 30.8 % (32.0-36.0); MCV 81.9 fL (80-95); MPV 10.3 fL (8.0-11.0); Monocytes % 9.3; Neutrophils % 68.3; Nucleated RBC 0 %; Platelet Count 317 10^3/uL (130-400); RBC 4.92 10^6/uL (4.36-5.78); RDW 15.2 % (11.8-14.1); RDW-SD 45.1 fL; WBC 7.55 10^3/uL (4.4-10.8)
[2019-12-14 15:19] LABS: ALT 41 U/L (16-63); AST 37 U/L (15-37); Albumin 3.7 g/dL (3.4-5.0); Alkaline Phosphatase 60 U/L (46-116); Anion Gap 6.8 mmol/L (3-11); BUN 12 mg/dL (7-18); Bilirubin, Total 0.5 mg/dL (0.2-1.0); CO2 29.2 mmol/L (21.0-32.0); CREATININE 1.02 mg/dL (0.70-1.30); Calcium 9.1 mg/dL (8.5-10.1); Chloride 101 mmol/L (98-107); Glucose 121 mg/dL (74-106); Lipase 409 U/L (73-393); Potassium 3.7 mmol/L (3.5-5.1); Sodium 137 mmol/L (136-145); Total Protein 8.2 g/dL (6.4-8.2)
[2019-12-14] MEDS: PANTOPRAZOLE 80 MG in Normal Saline 100 ML 400 MG IV (16:10)
[2019-12-14 16:30] LABS: Troponin I < 0.05 ng/mL (<0.06)
[2019-12-14 16:32] VITALS: BP 124/73; PULSE 50; RESP 98; TEMP 36.6; O2SAT 20
--- NOTE | 2019-12-14 16:45 | DI.CT_ITS ---
EXAM: CT ABDOMEN PELVIS W CLINICAL HISTORY: epigastric pain, slightly elevated lipase TECHNIQUE: Imaging Protocol: Axial computed tomography images with coronal and sagittal reformatted images were created and reviewed CONTRAST MATERIAL: Intravenous: Omnipaque 350 Contrast volume:100 mL Oral: No COMPARISON: CT CT THORAX ABD/PEL CTA from 04/22/2019 FINDINGS: ABDOMEN: Lung Bases: Dependent atelectasis. Liver: Normal density. Stable hypodensities in the liver. They are too small for further characteriz ation but likely reflect small cysts. No suspicious hepatic masses are seen. Portal, Superior Mesenteric, and Splenic Veins: Unremarkable. Gallbladder and Biliary Tract: No cholelithiasis. Stable size of the intra and extrahepatic bile tamra ts. The extrahepatic bile duct measures almost 1 cm. This is unchanged. Pancreas: Normal density, no abnormal calcifications or inflammatory process. Spleen: Normal. Adrenals: Stable nodularity of the adrenal glands. Kidneys: Normal size, contour and axis. No radiodense stones or obstructive uropathy. Stable renal cy sts. Abdominal Aorta: Abdominal portion non-dilated. Mild atherosclerosis. Bowel: No obstruction or bowel wall thickening. Appendix is unremarkable. Colonic diverticulosis but no evidence of acute diverticulitis. Small hiatal hernia. Peritoneal Cavity: No ascites, collection or mesenteric inflammatory response. Lymph Nodes: Within normal limits. Bones: Mild degenerative changes in the spine. Soft Tissues: Small fat containing inguinal hernia. PELVIS: Bladder: Incompletely distended but no gross abnormalities identified. Reproductive Organs: Mild enlargement of the prostate gland. Lymph Nodes: Within normal limits. Bones: Degenerative changes in the spine. IMPRESSION: 1. No acute abdominal or pelvic process. 2. Stable size of the intra and extrahepatic bile ducts since 04/22/2019. If further imaging is warran richar ultrasound may be considered for further evaluation. RADIATION DOSE DELIVERED: 1,173.62mGy.cm Total DLP DATA REPOSITORY: All CT scans at this facility are submitted to the National Radiology Data Registry (NRDR) Dose Index Registry (DIR) with the [employer] (ACR). RADIATION OPTIMIZATION: All CT scans at this facility use at least one of these dose optimization te chniques: automated exposure control; mA and/or kV adjustment per patient size (includes targeted exa ms where dose is matched to clinical indication); or iterative reconstruction.
[2019-12-14] MEDS: Normal Saline - Diluent 50 ML VIAL IV (16:55)
[2019-12-14] MEDS: Normal Saline Flush 10 ML SYR IVP (16:55)
[2019-12-14] MEDS: Omnipaque 350 MG/ML 100 ML BTL IJ (16:56)
--- NOTE | 2019-12-14 17:21 | DI.VRAD_ITS ---
PROCEDURE INFORMATION: Exam: CT Abdomen And Pelvis With Contrast Exam date and time: 12/14/2019 4:50 PM Age: 54 years old Clinical indication: Other: Epigastric pain, slightly elevated lipase TECHNIQUE: Imaging protocol: Computed tomography of the abdomen and pelvis with intravenous contrast. Contrast material: OMNIPAQUE 350; Contrast volume: 100 ml; Contrast route: INTRAVENOUS (IV); COMPARISON: CT THORAX ABD/PEL CTA 04/22/2019 4:57 AM FINDINGS: Lungs: There is subpleural atelectasis of the dependent portions of the lungs. The visualized portions of the lung bases demonstrate no acute disease. Mediastinal space: A small hiatal hernia is present. Liver: There is moderate enlargement of the liver. Scattered fluid density liver lesions are appreciated, the largest in the right hepatic lobe measuring 1.4 cm. These are most in favor with simple hepatic cysts. No follow-up is recommended at this time. Gallbladder and bile ducts: The gallbladder appears unremarkable, however there is mild intra and extrahepatic biliary ductal dilation with the CBD measuring up to 1 cm. Pancreas: Normal. No ductal dilation. Spleen: Normal. No splenomegaly. Adrenals: Normal. No mass. Kidneys and ureters: Bilateral simple renal cysts are appreciated, the largest in the right kidney measuring up to 2.2 cm. No follow-up is recommended at this time. No acute renal findings. No concerning renal lesions. Stomach and bowel: Unremarkable. No obstruction. No mucosal thickening. Appendix: No evidence of appendicitis. Intraperitoneal space: Unremarkable. No free air. No significant fluid collection. Vasculature: DiverticulosisThe vasculature demonstrates diffuse moderate atherosclerotic calcification. Lymph nodes: Unremarkable. No enlarged lymph nodes. Urinary bladder: There is mild submucosal fat deposition noted throughout the urinary bladder wall. This most probably the chronic sequela of bladder outlet obstruction or chronic cystitis. Urinary bladder is otherwise unremarkable. Reproductive: The prostate demonstrates moderate nonspecific enlargement. The seminal vesicles are normal. Bones/joints: No acute skeletal pathology. Mild multilevel degenerative changes of the spine, as manifested by multilevel anterior osteophytes and multilevel decrease in intervertebral disc space. Soft tissues: Unremarkable. IMPRESSION: 1. Negative for acute abdominopelvic pathology. 2. Biliary findings are of uncertain etiology, however correlation with bilirubin levels or ultrasound may be entertained if clinically warranted. 3. Incidental findings as detailed above. Dictated and Authenticated by: Reece Quigley MD. Ordering:PETE Grider MD
[2019-12-14 18:06] VITALS: BP 148/84; PULSE 62; RESP 16; TEMP 36.6; O2SAT 98
[2019-12-14 18:21] LABS: Bilirubin Negative (Negative); Blood Negative (Negative); Clarity Clear (Clear); Glucose Negative (Negative); Ketones Negative (Negative); Leukocyte Esterase Negative (Negative); Nitrite Negative (Negative); Specific Gravity 1.025 (1.005-1.025); Urobilinogen 0.2 EU/dL (Up TO 0.2)
== END 2019-12-14 18:15 | disposition home or self-care (01) ==
PROVIDERS: Physician Assistant; Emergency Provider Physician Assistant
DX: K85.90 Acute pancreatitis without necrosis or infection, unspecified (principal); R10.13 Epigastric pain; R19.7 Diarrhea, unspecified; F10.10 Alcohol abuse, uncomplicated; I10 Essential (primary) hypertension
CPT/HCPCS: 36415; 80053; 83690; 93005; 96361; 96365; 99285; 74177; 81003; 84484; 85025; 93010; 99284; J3490

== ENCOUNTER 2020-01-29 00:29 | Outpatient (CLI) | payer BC, SELFPAY ==
--- NOTE | 2020-01-29 07:00 | DI.MRI_ITS ---
EXAM: MR ABDOMEN WO CLINICAL HISTORY: eval GB/pancreas,dilated bile duct on CT US,K83.8,F/U ABNL IMAGING. TECHNIQUE: Multiplanar multisequence MRI was performed. COMPARISON: No exams were available for comparison FINDINGS: MR examination of the was performed with scanning of the upper abdomen including MR CP acquisitions. There are multiple bilateral renal cysts. Otherwise the kidneys are unremarkable. Adrenals appear n ormal. Spleen is normal in appearance. Pancreas appears normal with no evidence of a mass or cyst.. No upper abdominal adenopathy. No abdominal aortic aneurysm. Liver contains multiple cysts, the largest in the right hepatic lobe measuring about 14 millimeters i n diameter. No additional focal hepatic lesion seen. Gallbladder contains a 13 millimeter stone. Gallbladder wall is normal. The cystic duct, common hep atic duct, common bile duct, and pancreatic ducts all appear normal. No choledocholithiasis. There is no biliary dilatation. IMPRESSION: Cholelithiasis. No biliary dilatation. Multiple bilateral renal cysts and hepatic cysts. DATA REPOSITORY:
== END 2020-01-29 00:49 ==
LOC: DI 00:29
PROVIDERS: Visit Provider Surgery
DX: K80.20 Calculus of gallbladder without cholecystitis without obstruction (principal); N28.1 Cyst of kidney, acquired; K76.89 Other specified diseases of liver
CPT/HCPCS: 74181

== ENCOUNTER 2020-01-31 02:43 | Outpatient (CLI) | payer BC, SELFPAY ==
[2020-02-02 16:33] LABS: COVID-19 RT-PCR Result NEGATIVE (Negative)
== END 2020-01-31 03:03 ==
PROVIDERS: Visit Provider Surgery
DX: Z11.59 Encounter for screening for other viral diseases (principal); Z01.818 Encounter for other preprocedural examination
CPT/HCPCS: U0003

== ENCOUNTER 2020-02-04 06:09 | Day surgery (SDC) | payer BC, SELFPAY ==
[2020-02-04 06:16] VITALS: BP 137/85; PULSE 69; RESP 16; TEMP 36.3; O2SAT 98
[2020-02-04] MEDS: Lactated Ringers 1,000 ML 80 ML IV (06:43)
--- NOTE | 2020-02-04 06:57 | ENDO_ITS ---
Date of service: 02/04/20 Time of Service: 07:43 Endoscopy Report DATE OF PROCEDURE: 02/04/20 PRE-OP DIAGNOSIS: Abdominal pain POST-OP DIAGNOSIS: other (Gastritis, reflux esophagitis) PROCEDURE: EGD with biopsies SURGEON: Lisa Calderon ANESTHESIA: other (General/ASA 2/Shanique Patton, STEPH) ESTIMATED BLOOD LOSS: 3 PATHOLOGY: other (Antrum Bx, GE junction bx) COMPLICATIONS: None DISPOSITION: same day INDICATIONS: Mr. Mayes is a pleasant 54-year-old gentleman who has been having upper abdominal pain for the last 5 years. The pain comes and goes. Sometimes his stomach feels unsettled after eating, sometimes it feels unsettled if he does not eat for long periods. It does not seem to matter what he eats. He had a recent colonoscopy which showed 1 hyperplastic polyp. He is not had any bowel habit changes. The pain he describes is mostly in the epigastric area. He has never had an upper endoscopy. Of note to is that on the CAT scan and ultrasound they noted dilated intra and extrahepatic bile duct this is a chronic finding. Differential diagnosis includes biliary colic as well as gastritis and reflux. I am concerned about the biliary ductal dilatation. Although this may be normal for him I think it needs to be followed up. I discussed with the patient doing an upper endoscopy first to evaluate for gastric ulcers, reflux and gastritis. I would also like to do an MRCP to get a better look at his bile ducts pancreas and gallbladder. The patient in agreement with this plan. We also discussed Covid testing prior to his EGD. I went over quarantine requirements after testing. P\\ 1. COVID testing prior to procedure 2. EGD with biopsies under sedation FINDINGS: Mild gastritis reflux esophagitis, ? Jacobsen's PROCEDURE DESCRIPTION: After informed consent was obtained the patient was take to the procedure room and placed in a supine position. Monitors were applied and a time out was done. The patients name, date of , procedure type, allergies to medications and metal in their body was reviewed. A bite block was placed and the patient was sedated. Once sedated and comfortable the gastroscope was advanced through the oropharynx which was grossly normal into the esophagus. The proximal and mid- esophagus were normal. In the distal esophagus there was inflammation noted. T he scope was advanced into the stomach and through the pylorus into the 3rd portion of the duodenum. The duodenum was noted to be normal. The patient started to wake up at this time and the scope was removed. Anesthesia gave the patient ketamin and more propofol. Once comfortable the scope was re-introduced and advanced into the stomach. There was mild inflammation noted. There were no ulcers. Biopsies were done to rule out H. pylori. The scope was retroflexed. The cardia and fundus were noted to be normal. There was no hiatal hernia noted. The scope was retracted back into the esophagus. There was inflammation noted and ? of Barretts. Biopsies were done of the GE junction to rule out Jacobsen's. The Z line was irregular with areas of mucusal changes. The GE junction was at 40 cm. The scope was removed and the patient was woken up and taken back to [facility] in stable condition. Follow up: 2 weeks in the office. I will start patient on Omeprazole 40 mg BID. Stop Pepcid.
--- NOTE | 2020-02-04 06:58 | W.PM.DSUDISC ---
Discharge Plan Disposition Patient Disposition: HOME Condition: Good Discharge Details Reason For Visit: Abdominal pain Attending Provider: Lisa Calderon Primary Care Provider: Nallely Limon Home Meds and New Rx's Prescriptions: New omeprazole 40 mg capsule,delayed release(DR/EC) 40 mg PO BID Qty: 60 RF: 0 Continued amlodipine-benazepril 10-40 mg capsule 1 cap PO DAILY Qty: 90 RF: 4 metoprolol tartrate 50 mg tablet 50 mg PO BID Qty: 180 RF: 4 spironolactone 25 mg tablet 25 mg PO TID Qty: 180 RF: 3 Discontinued famotidine 20 mg tablet 20 mg PO DAILY Qty: 30 RF: 3 Discharge Instructions Instructions: Diet for Stomach Ulcers and Gastritis (ED), Gastritis (DC), Esophagitis (GEN) Additional Instructions: Findings: inflammation of the stomach and esophagus Follow up: 2 weeks Please call if you develop: fevers >101.5 Nausea or Vomiting Abdominal pain that is not transient DAY SURGERY UNIT POST ENDOSCOPY INSTRUCTIONS 1. Because there will be medication in your system for the next 24 hours, you may feel a little sleepy. Your coordination will be affected. Therefore: a. Do not drive or operate dangerous equipment for 24 hours. b. Do not drink alcohol beverages for 24 hours (not even beer). c. Plan to go home and rest for the day. 2. Generally there are no restrictions on your activity after a day or so has gone by, but you may feel a bit fatigued for a few days. 3 After you arrive home you may have a light meal and return to a normal diet as you can tolerate it without feeling sick to your stomach. 4. After surgery, you may feel pain or discomfort. This should be only transient, but if it persists please contact your doctor. 5. If there are any questions regarding the findings of your procedure, please feel free to contact your doctor. 6. If you are unable to contact your doctor with a problem, contact the hospital at [phone]. 7. Continue all your regular medications unless directed otherwise. I understand the above instructions and have no questions. Signature of Patient or Responsible Adult Escort Date/Time Name of Responsible Adult Escort Signature of Nurse Date/Time Activity:: Activity as Tolerated Diet:: low acid Discharge Orders Discharge Orders: Discharge Order (Routine); Ordered 02/04/20 Ordered By: Lisa Calderon
--- NOTE | 2020-02-04 07:32 | STOM_PTH ---
PATIENT: Serafin Mayes LOC: [facility] U#:[id number] AGE/SX: 54/M ROOM: RE02/04/[address]: Lisa Calderon MD : [id number] BED: DIS: 02/04/2020 SPEC #: [id number] RECD: 02/04/20 12:22 STATUS: JEB REQ #: [id number] ADILIA: 02/04/20 07:[address]: Lisa Calderon DEPT: Surgical Specimen RECD BY: Diana Henry ENTERED: 02/04/20 12:24 SP TYPE: STOMACH OTHR DR: Nallely Limon APRN Tissues: 1 - STOMACH BIOPSY 2 - ESOPHAGUS BIOPSY Procedures: GROSS AND MICRO LEVEL 4 IMMUNOPEROXIDASE STAIN Comments: [id number]
[2020-02-04 08:19] VITALS: BP 125/82; PULSE 63; RESP 16; TEMP 36.6; O2SAT 98
== END 2020-02-04 08:50 | disposition home or self-care (01) ==
PROVIDERS: Visit Provider Surgery
PROC: 0DJ68ZZ Inspection of Stomach, Via Natural or Artificial Opening Endoscopic (ICD-10-PCS; CPT 43235; principal; 2020-02-04 07:30)
DX: R10.13 Epigastric pain; K29.50 Unspecified chronic gastritis without bleeding; K21.00 Gastro-esophageal reflux disease with esophagitis, without bleeding
CPT/HCPCS: 43239; 88305; 88361; J2001; J2704

== ENCOUNTER 2020-07-03 03:36 | Outpatient (CLI) | payer BC, SELFPAY ==
[2020-07-03 13:54] LABS: ALT 36 U/L (16-63); AST 22 U/L (15-37); Albumin 3.7 g/dL (3.4-5.0); Alkaline Phosphatase 43 U/L (46-116); Anion Gap 9.1 mmol/L (3-11); BUN 15 mg/dL (7-18); Bilirubin, Total 0.4 mg/dL (0.2-1.0); CO2 26.9 mmol/L (21.0-32.0); CREATININE 1.1 mg/dL (0.70-1.30); Calcium 9.3 mg/dL (8.5-10.1); Chloride 103 mmol/L (98-107); Glucose 82 mg/dL (74-106); Potassium 4.3 mmol/L (3.5-5.1); Sodium 139 mmol/L (136-145); TSH (W/Ref FT4) 0.79 uIU/mL (0.36-3.74); Total Protein 7.6 g/dL (6.4-8.2)
[2020-07-07 16:59] LABS: Renin Activity, Plasma 15 ng/mL/h
[2020-07-09 15:34] LABS: PTH-Related Peptide <0.4 pmol/L (< or = 4.2)
== END 2020-07-03 03:37 | disposition home or self-care (01) ==
LOC: LBO 03:36
DX: I10 Essential (primary) hypertension (principal); K80.20 Calculus of gallbladder without cholecystitis without obstruction; K83.8 Other specified diseases of biliary tract
CPT/HCPCS: 36415; 80053; 82088; 82397; 84244; 84300; 84443

== ENCOUNTER 2020-07-16 15:55 | Outpatient (REF) | payer BC, SELFPAY ==
[2020-07-23 17:23] LABS: Aldosterone, U 15 mcg/24 h (2.0-20); Sodium, 24hr Urine 159 mmol/24 h (22 - 328); Urine Volume 1475 mL
== END 2020-07-16 15:56 | disposition home or self-care (01) ==
LOC: LBN 15:55
DX: I10 Essential (primary) hypertension (principal); K80.20 Calculus of gallbladder without cholecystitis without obstruction
CPT/HCPCS: 81050; 82088; 84300

== ENCOUNTER 2020-11-06 12:01 | Outpatient (CLI) | payer BC, SELFPAY ==
--- NOTE | 2020-11-06 12:00 | RT.EKG_ITS ---
APPROVED REPORT Exam: Resting ECG Reason for Exam: Chest discomfort Patient Location: O HR:71 bpm ECG Measurements Heart Rate 71 AXIS NH 173 P 52 QRSd 85 QRS 48 QT 368 T 56 QTc 401 Conclusion Sinus rhythm...normal P axis, V-rate 60- 99 Normal Electrocardiogram
== END 2020-11-06 12:02 | disposition home or self-care (01) ==
LOC: DI.CM 12:03
DX: I10 Essential (primary) hypertension (principal)
CPT/HCPCS: 93010

== ENCOUNTER 2021-06-04 12:09 | Outpatient (CLI) | payer BC, SELFPAY ==
--- NOTE | 2021-06-04 09:15 | DI.RAD_ITS ---
Exam(s) XR KNEE LT 3V AP,LAT,OVIDIO EXAM: XR KNEE LT 3V AP,LAT,OVIDIO CLINICAL HISTORY: pain after a pop 24 hours ago. Edema. M25.562. TECHNIQUE: 2D digital imaging was performed of the left knee. Three images were obtained. AP, late ral and PA tunnel views were obtained. COMPARISON: CR BONE LENGTH from 03/04/2017 FINDINGS: BONES: No acute fracture is present. No bony destructive lesion is seen. JOINTS: There are mild degenerative changes in the left knee with periarticular spurring and mild kyra nt space narrowing. The findings are most marked in the medial femoral tibial joint. No joint effus ion is seen. SOFT TISSUE: Normal. IMPRESSION: Mild degenerative changes of the left knee. DATA REPOSITORY: RADIATION DOSE DELIVERED:
== END 2021-06-04 12:29 ==
LOC: DI 12:14
DX: M25.562 Pain in left knee (principal); R60.0 Localized edema; M17.12 Unilateral primary osteoarthritis, left knee
CPT/HCPCS: 73562

== ENCOUNTER 2021-08-20 17:04 | Outpatient (CLI) | payer BC, SELFPAY ==
[2021-08-20 16:45] LABS: Abs Immature Grans 0.02 10^3/uL (0.0-0.06); Absolute Basophil Count 0.02 10^3/uL (0.0-0.2); Absolute Eosinophil Count 0.19 10^3/uL (0.0-0.7); Absolute Lymphocyte Count 1.48 10^3/uL (1.2-3.4); Absolute Neutrophil Count 4.06 10^3/uL (1.2-6.7); Basophils % 0.3; Eosinophils % 2.9; HCT 35.3 % (40.0-50.0); Immature Grans % 0.3; Lymphocytes % 22.5; MCH 30.9 pg (27.0-33.0); MCV 91 fL (80-95); MPV 9.4 fL (8.0-11.0); Monocytes % 12.2; Neutrophils % 61.8; Platelet Count 267 10^3/uL (130-400); RBC 3.88 10^6/uL (4.36-5.78); RDW 12.3 % (11.8-14.1); RDW-SD 40.8 fL; WBC 6.57 10^3/uL (4.4-10.8)
[2021-08-20 17:40] LABS: Albumin 3.4 g/dL (3.4-5.0); Anion Gap 8.6 mmol/L (3-11); BUN 16 mg/dL (7-18); CO2 28.4 mmol/L (21.0-32.0); CREATININE 1.1 mg/dL (0.70-1.30); Chloride 101 mmol/L (98-107); Glucose 103 mg/dL (74-106); Potassium 3.1 mmol/L (3.5-5.1); Sodium 138 mmol/L (136-145)
== END 2021-08-20 17:05 | disposition home or self-care (01) ==
LOC: LBO 17:05
PROVIDERS: Visit Provider Internal Medicine Nephrology
DX: I10 Essential (primary) hypertension (principal)
CPT/HCPCS: 36415; 80048; 82040; 85025

== ENCOUNTER 2022-01-14 08:22 | Outpatient (REF) | payer BC, SELFPAY ==
[2022-01-14 09:02] LABS: Sodium, Urine 131 mmol/L
[2022-01-14 09:09] LABS: CLEAVED CELLS 210 mmol/24h (40-220); Total Volume 1600 ml
[2022-01-20 17:15] LABS: Aldosterone, U 28 mcg/24 h (2.0-20); Urine Volume 1600 mL
== END 2022-01-14 08:23 | disposition home or self-care (01) ==
LOC: LBN 08:22
PROVIDERS: PCP Nurse Practitioner Family; Visit Provider Internal Medicine Nephrology
DX: I10 Essential (primary) hypertension (principal); E87.6 Hypokalemia
CPT/HCPCS: 82088; 81050; 84300

== ENCOUNTER 2022-01-18 03:05 | Outpatient (CLI) | payer BC, SELFPAY ==
[2022-01-18 15:50] LABS: Calculated LDL 100 mg/dL (<100); Cholesterol 175 mg/dL (<200); HDL Cholesterol 53 mg/dL (40-60); Triglyceride 111 mg/dL (<150)
[2022-01-18 22:15] LABS: PSA, Screening 0.6 ng/mL (<=3.5)
== END 2022-01-18 03:06 | disposition home or self-care (01) ==
PROVIDERS: PCP Nurse Practitioner Family; Visit Provider Nurse Practitioner Family
DX: Z13.220 Encounter for screening for lipoid disorders (principal); Z12.5 Encounter for screening for malignant neoplasm of prostate
CPT/HCPCS: 36415; 80061; 84153

== ENCOUNTER 2022-03-04 02:29 | Outpatient (CLI) | payer BC, SELFPAY ==
[2022-03-04 12:19] LABS: Anion Gap 5.7 mmol/L (3-11); BUN 17 mg/dL (7-18); CO2 31.3 mmol/L (21.0-32.0); CREATININE 1.1 mg/dL (0.70-1.30); Calcium 9.2 mg/dL (8.5-10.1); Chloride 102 mmol/L (98-107); Estimated GFR 79.77 (mL/min/1.73m2); Glucose 88 mg/dL (74-106); Magnesium 1.8 mg/dL (1.8-2.4); Potassium 3.7 mmol/L (3.5-5.1); Sodium 139 mmol/L (136-145)
== END 2022-03-04 02:30 | disposition home or self-care (01) ==
LOC: LOS 02:29
PROVIDERS: PCP Nurse Practitioner Family; Visit Provider Internal Medicine Nephrology
DX: I10 Essential (primary) hypertension (principal); E87.6 Hypokalemia; E26.09 Other primary hyperaldosteronism
CPT/HCPCS: 36415; 80048; 83735

== ENCOUNTER 2022-05-31 02:11 | Outpatient (CLI) | payer BC, SELFPAY ==
--- NOTE | 2022-05-31 06:57 | DI.RAD_ITS ---
Exam(s) XR FOOT LT COMPLETE EXAM: XR FOOT LT COMPLETE CLINICAL HISTORY: PT failure/lt foot pain,m79.672. TECHNIQUE: 2D digital imaging was performed. COMPARISON: No exams were available for comparison FINDINGS: 3 views There is no evidence of acute fracture nor diastasis of the Lisfranc joint. There is a healed fractu re site in the proximal half of the 2nd metatarsal. No other healed fracture sites identified. No p es planus. No obvious degenerative changes. No osseous tarsal coalition. Os trigonum noted. Small inferior calcaneal spur noted. IMPRESSION: Healed fracture site in the proximal half of the 2nd metatarsal. Small inferior calcaneal spur. No pes planus evident, given the history here. DATA REPOSITORY: RADIATION DOSE DELIVERED:
--- NOTE | 2022-05-31 06:57 | DI.RAD_ITS ---
Exam(s) XR ANKLE LT COMPLETE EXAM: XR ANKLE LT COMPLETE CLINICAL HISTORY: PT failure/lt foot pain, m79.672. TECHNIQUE: 2D digital imaging was performed. COMPARISON: No exams were available for comparison FINDINGS: 3 views No evidence of acute fracture nor widening of the ankle mortise. Talar dome unremarkable. No osseou s tarsal coalition. Moderate size inferior calcaneal spur noted. No obvious pes planus IMPRESSION: No significant osseous findings. DATA REPOSITORY: RADIATION DOSE DELIVERED:
== END 2022-05-31 02:31 ==
LOC: DI 02:11
PROVIDERS: PCP Nurse Practitioner Family; Visit Provider Nurse Practitioner Family
DX: M79.672 Pain in left foot (principal); M25.572 Pain in left ankle and joints of left foot; M77.32 Calcaneal spur, left foot; Z87.81 Personal history of (healed) traumatic fracture
CPT/HCPCS: 73610; 73630

== ENCOUNTER 2022-11-04 00:53 | Emergency (ER) | payer BC, SELFPAY ==
[2022-11-04] VITALS (41 sets, daily range): BP systolic 126–166; BP diastolic 78–99; PULSE 55–74; RESP 13–23; O2SAT 92–98
--- NOTE | 2022-11-04 00:45 | RT.EKG_ITS ---
APPROVED REPORT Exam: Resting ECG Reason for Exam: chest pain Patient Location: E HR:57 bpm ECG Measurements Heart Rate 57 AXIS TX 171 P 33 QRSd 92 QRS 0 QT 400 T [id number] QTc 391 Conclusion Sinus bradycardia...rate< 60 Indeterminate axis...QRS axis indeterminate Inferior infarct, old...Q >35mS, II III aVF
--- NOTE | 2022-11-04 01:00 | DI.CT_ITS ---
Exam(s) CT ABDOMEN PELVIS W EXAM: CT ABDOMEN PELVIS W CLINICAL HISTORY: epigastric abdominal pain. TECHNIQUE: Imaging Protocol: Axial computed tomography images with coronal and sagittal reformatted images were created and reviewed CONTRAST MATERIAL: Intravenous: Omnipaque-350 100cc Oral: None COMPARISON: CT CT ABDOMEN PELVIS W from 12/14/2019 FINDINGS: VISUALIZED LUNG BASES: No nodules nor pleural effusions evident. ABDOMEN: There is no ascites. LIVER: There are no new focal hepatic lesions evident. Stable subcapsular cyst in the right hepatic lobe is again noted. Another previously present smaller cyst is less evident on the present study an d this may indicate that it is possibly a hemangioma. Dilated intrahepatic ducts again noted in both hepatic lobes. Common hepatic duct is mildly dilated, unchanged. Lower CBD normal size. No radiop aque calculi seen in the CBD. GALLBLADDER/BILIARY: Subtle suggestion of a 1.5 cm calculus in the gallbladder neck region, noncalcif ied. Gallbladder is mildly distended above this level but not edematous and there is no pericholecys tic fluid. PANCREAS: No evidence of pancreatic mass nor dilatation of the pancreatic duct. SPLEEN: Spleen is not enlarged. No obvious intrasplenic lesions. Splenic and portal veins are paten t. ADRENALS: There are no significant adrenal masses. KIDNEYS:4 small benign cysts are noted in the left kidney which do not require further imaging workup . Largest of these measures 1.8 x 1.9 cm. There is also an exophytic hemorrhagic cyst at the midpol e level of the opposite-right kidney which measures 1.7 x 1.3 cm, decreased in size from previous. N o solid renal masses nor calculi. No hydronephrosis nor hydroureter.. ABDOMINAL AORTA: Calcified but not enlarged. LYMPH NODES:There is no retroperitoneal nor paraaortic adenopathy. ABDOMINAL WALL: No evidence of significant anterior abdominal wall nor inguinal hernia. GI: There is no evidence of bowel obstruction, free air, nor abscess. PELVIS: GI: No evidence of appendicitis.No evidence of sigmoid diverticulitis. LYMPH NODES: There is no intrapelvic nor inguinal adenopathy. REPRODUCTIVE: Prostate size upper normal. Seminal vesicles unremarkable. URINARY BLADDER: No calculi nor obvious masses evident OSSEOUS: No fractures and no significant osseous lesions. IMPRESSION: 1. There is a 1.5 cm subtle noncalcified gallstone in the gallbladder neck region. The gallbladder i s mildly distended but does not appear edematous. Biliary tree is mildly dilated both intra and extr ahepatic but this is not a new finding. Recommend follow-up ultrasound. 2. No evidence of appendicitis nor diverticulitis. 3. No renal calculi nor hydronephrosis. RADIATION DOSE DELIVERED: 1,315.86mGy.cm Total DLP DATA REPOSITORY: All CT scans at this facility are submitted to the National Radiology Data Registry (NRDR) Dose Index Registry (DIR) with the [employer] (A[employer]). RADIATION OPTIMIZATION: All CT scans at this facility use at least one of these dose optimization te chniques: automated exposure control; mA and/or kV adjustment per patient size (includes targeted exa ms where dose is matched to clinical indication); or iterative reconstruction.
--- NOTE | 2022-11-04 01:07 | ED.GENADUL_ITS ---
Discharge Plan Disposition Patient Disposition: Home Discharge Details Clinical Impression: Cholelithiasis, Biliary colic Primary Care Provider: Nik Toledo ED Provider: Yobani Bravo Meds and New Rx's Prescriptions: Continued metoprolol succinate 100 mg tablet extended release 24 hr 100 mg PO DAILY Qty: 90 3RF ibuprofen 600 mg tablet 600 mg PO TID Qty: 90 1RF eplerenone 50 mg tablet 50 mg PO BID amlodipine 5 mg tablet 5 mg PO DAILY Qty: 90 3RF omeprazole 40 mg capsule,delayed release(DR/EC) 40 mg PO BID PRN (Reason: only taking as needed about x1 week) Qty: 30 1RF Discharge Instructions Instructions: Biliary Colic (ED), Gallstones (ED), Abdominal Pain (ED) Referrals: Nik Toledo, [employer] [Primary Care Provider] - 5 days Discharge Data Discharge Date/Time-TO BE ENTERED AT DEPARTURE: 11/04/22 04:57 Discharge Physician: Yobani Bravo Medical Decision Making MDM: Summary: Patient presents to the emergency department complaining of right upper quadrant and epigastric pain radiates to his chest. EKG was done which shows no abnormality. Patient has a history of hypertension and does drink beer on a daily basis. He has had his 3 bouts of the same pain in the past and was here to he might have elevation of the LFTs and lipase. Patient received analgesics and antiemetics in the emergency department as well as IV fluids. Labs were obtained which showed elevation of the LFTs and very mild elevation of the lipase a CAT scan of the abdomen pelvis with contrast obtained as well which pratibha ws gallstones but no evidence of cholecystitis just evidence of cholelithiasis. Looking back in his chart he is also was diagnosed with gallstones in the past. He is pain-free now and I advised him he needs to make an appoint with the surgeon to have the gallbladder out electively Data Review Analysis All the data on this patient was reviewed by me including laboratory and imaging studies as well as bedside studies performed by me Independent review of Studies Imaging I reviewed the CT scan and agree with the radiologist the only intra-abdominal finding is gallstone no evidence of cholecystitis Lab: Labs are unremarkable except for mild ovation of the LFTs and lipase Risk Stratification: Patient with gallstones or biliary colic will need to have the gallbladder removed at this time he is pain-free there is no evidence of infection and can be safely discharged home with follow-up Differential Diagnosis: 1. Cholelithiasis 2. Cholecystitis 3. Acute pancreatitis 4. Acute appendicitis 5. Consultants: Shared disposition: Patient understands disposition agrees and will follow up with Dr. Sherwood the surgeon and his primary care doctor Impression: Medical Records Medical records reviewed: Yes I reviewed the patient's medical records. Imaging Data Radiologic Study: Attestation: I personally reviewed and interpreted this imaging study as follows: Imaging: CT Scan Radiologist's impression: Patient Name: Serafin Mayes Unit #: [id number] Loc: ER ? Ordering Provider:? Status: REG ER ? Primary Care Provider: Nik Toledo NP Date of Exam: 11/04/22 Sex: M ? : 1965 Age: 57 ? Exam(s) PROCEDURE INFORMATION: Exam: CT Abdomen And Pelvis With Contrast Exam date and time: 11/04/2022 2:43 AM Age: 57 years old Clinical indication: Other: Epigastric abdominal pain TECHNIQUE: Imaging protocol: Computed tomography of the abdomen and pelvis with contrast. Radiation optimization: All CT scans at this facility use at least one of these dose optimization techniques: automated exposure control; mA and/or kV adjustment per patient size (includes targeted exams where dose is matched to clinical indication); or iterative reconstruction. Contrast material: OMNIPAQUE 350; Contrast volume: 100 ml; Contrast route: INTRAVENOUS (IV);? COMPARISON: 1. ? MR ABDOMEN WO 01/29/2020 9:19 AM 2. ? CT ABDOMEN PELVIS W 12/14/2019 4:59 PM FINDINGS: Liver: Multiple stable cystic hepatic hypodensities bilaterally. Gallbladder and bile ducts: 1.5 cm dependent noncalcified gallbladder calculus in gallbladder neck region. Gallbladder wall normal. Common bile duct and intrahepatic biliary tree persistently mildly prominent. CBD measures 11 mm in diameter, which is stable. Pancreas: The pancreatic parenchyma appears homogeneous and unremarkable. Spleen: The spleen is normal. Adrenal glands: The adrenal glands are normal. Kidneys and ureters: Kidneys with multiple small bilateral hypodensities that are well circumscribed. The largest is a 2 cm mid to upper pole left renal simple cyst. No hydronephrosis. No renal calculi. No perinephric stranding. No ureterectasis. Stomach and bowel: No evidence of gastric or intestinal viscus perforation or bowel obstruction. No bowel wall thickening. Few descending noninflamed diverticuli. No evidence of diverticulitis. Appendix: A normal appendix is evident. There is no appendicitis. Intraperitoneal space: No free air. No ascites. Vasculature: The portal vein is patent. IVC patent. Lymph nodes: Unremarkable. No enlarged lymph nodes. Urinary bladder: Urinary bladder is thin walled and fluid filled. Reproductive: Unremarkable as visualized. Bones/joints: Unremarkable. No acute fracture. Soft tissues: Unremarkable. IMPRESSION: 1. ? Cholelithiasis. Gallstone in gallbladder neck region. 2. ? Diverticulosis without diverticulitis. Dictated and Authenticated by: Simon Flynn MD. Ordering:DES Hilton MD Ordered By:? ECG Data Attestation: I personally reviewed and interpreted this ECG (s) as follows: Prior ECG tracings: available for review Interpretation: Sinus rhythm...normal P axis, HR 57 no acute changes HPI General Date/Time Provider Initiated Documentation: 11/04/22 00:56 . HPI Narrative: Patient presents to the emergency department complaining of epigastric and right upper quadrant abdominal pain that radiates to his chest associated with nausea. Patient reports the pain is about an 8/10 and states that he got very sweaty. Denies any shortness of breath denies any fever denies any chills. Reports that this happened in the past and that was due to his alcohol use his lipase was mildly elevated Related Data Home Medications Medication Instructions Recorded Confirmed ibuprofen 600 mg tablet 600 mg PO TID #90 tabs 06/04/21 11/04/22 amlodipine 5 mg tablet 5 mg PO DAILY #90 tabs 10/13/21 11/04/22 metoprolol succinate 100 mg 100 mg PO DAILY #90 tabs 12/24/21 11/04/22 tablet,extended release 24 hr omeprazole 40 mg capsule,delayed 40 mg PO BID PRN only taking as 01/04/22 11/04/22 release needed about x1 week #30 caps eplerenone 50 mg tablet 50 mg PO BID 02/17/22 11/04/22 Previous Rx's Medication Instructions Recorded ibuprofen 600 mg tablet 600 mg PO TID #90 tabs 04/07/22 amlodipine 5 mg tablet 5 mg PO DAILY #90 tabs 10/13/21 metoprolol succinate 100 mg 100 mg PO DAILY #90 tabs 12/24/21 tablet,extended release 24 hr omeprazole 40 mg capsule,delayed 40 mg PO BID PRN only taking as 01/04/22 release needed about x1 week #30 caps Allergies Allergy/AdvReac Type Severity Reaction Status Date / Time No Known Allergies Allergy Verified 11/04/22 00:58 General Stated Complaint: Chest Pain JOSE LUIS: 2 Review of Systems Narrative: Review of Systems: Constitutional: No fevers, chills, sweats Eye: No recent visual problems ENT: No ear pain, nasal congestion, sore throat Respiratory: No shortness of breath, cough Cardiovascular: No Chest pain, palpitations, syncope Gastrointestinal: No vomiting, diarrhea Genitourinary: No hematuria Oscar/Lymph: Negative for bruising tendency, swollen lymph glands Endocrine: Negative for excessive thirst, excessive hunger Musculoskeletal: No back pain, neck pain, joint pain, muscle pain, decreased range of motion Integumentary: No rash, pruritus, abrasions Neurologic: Alert & oriented X 4 Psychiatric: No anxiety, depression PFSH All Active Problems (Updated 11/04/22 @ 04:44 by Yobani Bravo MD) Biliary colic (Acute) Serum lipase elevation (Chronic) Increased body mass index (BMI) (Acute) GERD (gastroesophageal reflux disease) (Chronic) Alcohol use disorder (Acute) Dilated bile duct (Acute) Hyperplastic colon polyp (Acute) Cholelithiasis (Acute) Diverticula of colon (Acute) Essential hypertension (Chronic 11/24/12) Medical History Chest pain (06/27/12) atypical Pt. states nothing came of it from cardiac work up Grief Headache Surgical History Repair, ACL (~12/1996) [place] [facility]-acl replacement of right knee Replacement of total knee joint (02/17/17) (R) DR. RUSSELL Status post repair of anterior cruciate ligament Status post total right knee replacement DOS: 02/17/17 Dr. Russell Family History Mother , 63 Cancer Father , 63 Essential hypertension Heart disease Pancreatic cancer Sister No problems noted. Sister , 40 No problems noted. Brother No problems noted. Brother Hyperlipidemia Maternal Grandfather , 72 Heart disease Paternal Grandfather , 70 Neoplasm Maternal Grandmother , 93 Diabetes Paternal Grandmother , 90 Diabetes Son Asthma Daughter Depression Brother No problems noted. Social History Smoking/Tobacco Use Status: Former Tobacco Use tobacco type: cigarettes and cigars Quit Date: 02/29/92 Smokeless tobacco user: snuff Second Hand Exposure: Yes Smoking risk assessment performed?: Yes Alcohol Intake: current Alcohol Intake frequency: a few times a week Alcohol type: beer Drug use: Never Substance use type: does not use Caregiver/Support person: No Household members: children Housing: apartment Communication Needs: None Do you need help understanding health information?: Never current occupation: [employer] Pets and animals: Yes Pets and animals: cat(s) Sexually active: Yes Do you think of yourself as: straight/heterosexual Current gender identity: male What is your relationship status?: How often do you talk on the phone with friends or family?: once per week How often do you get together with friends or relatives?: once per week How often do you attend bahai or congregational services?: 1-3 times per year Do you belong to any clubs or organized social groups?: yes Panel score (0-1 are the most socially isolated patients): 1 What type of physical activity do you participate in: other Details: golf, bowling Duration: 15-30 minutes/day Frequency: 5-6 times per week Alana/[employer]: [employer] Special alana needs: No Seatbelt use: always Helmet use: Yes Helmet use: always Drive intox or ride w/intox home delivery driver: No Do you feel safe at home: Yes Do you feel safe in your relationship?: Yes Victim of physical abuse: No Victim of emotional abuse: No Victim of sexual abuse: No Exam Narrative Exam Narrative: Exam; vitals signs as reported above Constitutional; In no acute distress, afebrile General: cooperative, healthy appearing, comfortable and no acute distress HEENT: Head: normal to inspection, no palpable skull fracture and normocephalic atraumatic Eyes: : appearance normal, both eyes and all related structures EOM intact bilaterally Pupils: PERRL : conjunctiva normal Direct ophthalmoscopy: normal light reflex, normal conjunctiva, normal visual acuity Ears: Normal TM, normal external canal Nose: normal no rhinorreha Neck no JVD, supple non tender Neck: normal visual inspection, full ROM and no lymphadenopathy Chest: normal inspection of the chest Respiratory : normal respiratory effort and able to speak in complete sentences no wheezing no rales Cardio Rate: regular rate, rhythm: regular rhythm normal heart sounds S1 and S2 no murmurs, gallops, or rubs GI : normal to inspection, normal bowel sounds, soft, non tender, non distended, no organomegaly Back/Spine/ no CVA tenderness Thoracic/Lumbar Spine: no tenderness or deformities Skin no rashes or lesions Neuro: patient alert oriented x 4 and no meningeal signs, Cranial Nerves: CN's II-XI intact bilaterally, Cognition: normal cognition, Speech: speech normal, Gait: normal gait, Depp tendon reflexes normal 2+ muscle strength 5/5 bilaterally Extremities, no edema, full range of motion, normal strength Course Vital Signs Vital signs: Vital Signs Respiratory Rate 23 11/04/22 00:56 Pulse Oximetry 96 11/04/22 00:56 Pulse 57 L 11/04/22 01:01 Pulse 58 L 11/04/22 01:01 Respiratory Rate 17 11/04/22 01:01 Respiratory Effort Normal 11/04/22 00:55 Blood Pressure 149/95 H 11/04/22 01:01 Blood Pressure Mean 112 11/04/22 01:01 Pulse Oximetry 97 11/04/22 01:01 Pain Level 9 11/04/22 00:55
[2022-11-04] MEDS: Ondansetron 4 MG/2 ML VIAL IVP (01:15)
[2022-11-04] MEDS: Normal Saline 1,000 ML 1000 ML IV (01:15)
[2022-11-04] MEDS: MORPHine 4 MG/ML SYR IVP (01:15)
[2022-11-04 01:18] LABS: Abs Immature Grans 0.02 10^3/uL (0.0-0.06); Absolute Basophil Count 0.04 10^3/uL (0.0-0.2); Absolute Eosinophil Count 0.31 10^3/uL (0.0-0.7); Absolute Lymphocyte Count 2.91 10^3/uL (1.2-3.4); Absolute Neutrophil Count 3.71 10^3/uL (1.2-6.7); Basophils % 0.5; HGB 14.1 g/dL (13.5-17.5); Immature Grans % 0.3; Lymphocytes % 37.4; MCHC 33.6 % (32.0-36.0); MCV 89 fL (80-95); MPV 9.9 fL (8.0-11.0); Monocytes % 10.3; Neutrophils % 47.5; Platelet Count 274 10^3/uL (130-400); RDW 12.9 % (11.8-14.1); RDW-SD 42.5 fL; WBC 7.79 10^3/uL (4.4-10.8)
[2022-11-04 01:43] LABS: ALT 73 U/L (16-63); AST 47 U/L (15-37); Albumin 3.6 g/dL (3.4-5.0); Alkaline Phosphatase 61 U/L (46-116); Anion Gap 9.3 mmol/L (3-11); BUN 16 mg/dL (7-18); Bilirubin, Total 0.3 mg/dL (0.2-1.0); CO2 28.7 mmol/L (21.0-32.0); CREATININE 1.4 mg/dL (0.70-1.30); Calcium 9.6 mg/dL (8.5-10.1); Chloride 102 mmol/L (98-107); Estimated GFR 59.36 (mL/min/1.73m2); Glucose 135 mg/dL (74-106); Lipase 101 U/L (16-77); Potassium 3.9 mmol/L (3.5-5.1); Sodium 140 mmol/L (136-145); Total Protein 7.9 g/dL (6.4-8.2); Troponin I < 50 ng/L (<or=60)
[2022-11-04] MEDS: Omnipaque 350 MG/ML 100 ML BTL IJ (02:54)
[2022-11-04] MEDS: Normal Saline - Diluent 50 ML VIAL IJ (02:56)
[2022-11-04] MEDS: Normal Saline Flush 10 ML SYR IVP (02:56)
[2022-11-04] MEDS: HYDROmorphone 2 MG/ML SYR 0.5 MG IVP (03:27)
[2022-11-04 03:40] LABS: Bilirubin Negative (Negative); Blood Negative (Negative); Clarity Clear (Clear); Glucose Negative (Negative); Ketones Negative (Negative); Leukocyte Esterase Negative (Negative); Nitrite Negative (Negative); Urobilinogen 0.2 mg/dL (Up to 0.2); pH 6.5 (5-8)
[2022-11-04] MEDS: Pantoprazole 40 MG VIAL IVP (03:55)
--- NOTE | 2022-11-04 04:06 | DI.VRAD_ITS ---
PROCEDURE INFORMATION: Exam: CT Abdomen And Pelvis With Contrast Exam date and time: 11/04/2022 2:43 AM Age: 57 years old Clinical indication: Other: Epigastric abdominal pain TECHNIQUE: Imaging protocol: Computed tomography of the abdomen and pelvis with contrast. Radiation optimization: All CT scans at this facility use at least one of these dose optimization techniques: automated exposure control; mA and/or kV adjustment per patient size (includes targeted exams where dose is matched to clinical indication); or iterative reconstruction. Contrast material: OMNIPAQUE 350; Contrast volume: 100 ml; Contrast route: INTRAVENOUS (IV); COMPARISON: 1. MR ABDOMEN WO 01/29/2020 9:[address] ABDOMEN PELVIS W 12/14/2019 4:59 PM FINDINGS: Liver: Multiple stable cystic hepatic hypodensities bilaterally. Gallbladder and bile ducts: 1.5 cm dependent noncalcified gallbladder calculus in gallbladder neck region. Gallbladder wall normal. Common bile duct and intrahepatic biliary tree persistently mildly prominent. CBD measures 11 mm in diameter, which is stable. Pancreas: The pancreatic parenchyma appears homogeneous and unremarkable. Spleen: The spleen is normal. Adrenal glands: The adrenal glands are normal. Kidneys and ureters: Kidneys with multiple small bilateral hypodensities that are well circumscribed. The largest is a 2 cm mid to upper pole left renal simple cyst. No hydronephrosis. No renal calculi. No perinephric stranding. No ureterectasis. Stomach and bowel: No evidence of gastric or intestinal viscus perforation or bowel obstruction. No bowel wall thickening. Few descending noninflamed diverticuli. No evidence of diverticulitis. Appendix: A normal appendix is evident. There is no appendicitis. Intraperitoneal space: No free air. No ascites. Vasculature: The portal vein is patent. IVC patent. Lymph nodes: Unremarkable. No enlarged lymph nodes. Urinary bladder: Urinary bladder is thin walled and fluid filled. Reproductive: Unremarkable as visualized. Bones/joints: Unremarkable. No acute fracture. Soft tissues: Unremarkable. IMPRESSION: 1. Cholelithiasis. Gallstone in gallbladder neck region. 2. Diverticulosis without diverticulitis. Dictated and Authenticated by: Simon Flynn MD. Ordering:DES Hilton MD
[2022-11-04 04:32] LABS: Troponin I < 50 ng/L (<or=60)
== END 2022-11-04 04:57 | disposition home or self-care (01) ==
PROVIDERS: Emergency Provider Emergency Medicine Emergency Medical Services; PCP Nurse Practitioner Family
DX: R07.9 Chest pain, unspecified; K80.20 Calculus of gallbladder without cholecystitis without obstruction; I10 Essential (primary) hypertension
CPT/HCPCS: 80053; 83690; 93005; 96361; 96374; 96375; 96376; 99285; 74177; 81003; 84484; 85025; 93010; J1170; J2270; J2405; J3490

== ENCOUNTER 2023-01-26 06:10 | Day surgery (SDC) | payer BC, SELFPAY ==
[2023-01-26] VITALS (10 sets, daily range): BP systolic 119–143; BP diastolic 74–98; PULSE 53–65; RESP 15–18; TEMP 36–36.6; O2SAT 16–100; BMI 34.9
[2023-01-26] MEDS: Lactated Ringers 1,000 ML 80 ML IV (06:46)
--- NOTE | 2023-01-26 06:46 | ANES.PREOP_ITS ---
General Info Date of Service Date Performed: 01/26/23 Height: 5 ft 9 in Weight: 107.4 kg Body Mass Index (BMI): 34.9 Surgical Procedure: Operation Date: 01/26/23 07:40 Proposed Procedure Side Surgeon p Cholecystectomy Laparoscopic Lisa Calderon MD Meds Allergies and Home Medications Allergies Allergy/AdvReac Type Severity Reaction Status Date / Time No Known Allergies Allergy Verified 01/26/23 06:41 Home Medication Medication Instructions Recorded ibuprofen 600 mg tablet 600 mg PO TID #90 tabs 06/04/21 amlodipine 5 mg tablet 5 mg PO DAILY #90 tabs 10/13/21 omeprazole 40 mg capsule,delayed 40 mg PO BID PRN only taking as 01/04/22 release needed about x1 week #30 caps eplerenone 50 mg tablet 50 mg PO BID 02/17/22 metoprolol succinate 100 mg 100 mg PO DAILY #90 tabs 12/06/22 tablet,extended release 24 hr Current Visit Medications: Current Medications Generic Name Dose Route Start Last Admin Trade Name Freq PRN Reason Stop Dose Admin Acetaminophen 1,000 mg 01/26/23 06:00 Acetaminophen 500 Mg Tab PO 01/26/23 23:59 PREOP [facility] Celecoxib 200 mg 01/26/23 06:00 Celecoxib 200 Mg Cap PO 01/26/23 23:59 PREOP [facility] Gabapentin 600 mg 01/26/23 06:00 Gabapentin 300 Mg Cap PO 01/26/23 23:59 PREOP [facility] Ringer's Solution 1,000 mls @ 80 mls/hr 01/26/23 06:00 IV 01/26/23 23:59 INFUSION [facility] Ampicillin Sodium/Sulbactam 100 mls @ 200 mls/hr 01/26/23 06:00 Sodium 3 gm/ Sodium Chloride IVPB 01/26/23 16:00 PREOP [facility] IV Miscellaneous Supplies 1 each 01/26/23 06:00 Iv Access IV 01/26/23 23:59 DIRECTED [facility] Sodium Chloride 0 ml 01/26/23 06:00 Normal Saline Flush 10 Ml Syr IV 01/26/23 23:59 PRN PRN Sodium Chloride 0 ml 01/26/23 06:00 Normal Saline 10 Ml Vial IJ 01/26/23 23:59 DIRECTED PRN Sterile Water 0 ml 01/26/23 06:00 Water,Injection,Sterile 10 Ml Vial IJ 01/26/23 23:59 DIRECTED PRN PFSH Active Problems Active Problems: Problem Status Onset Code Serum lipase elevation R74.8 Increased body mass index (BMI) R63.8 GERD (gastroesophageal reflux disease) K21.9 Alcohol use disorder Dilated bile duct K83.8 Hyperplastic colon polyp K63.5 Cholelithiasis K80.20 Diverticula of colon K57.30 Herpes simplex B00.9 Essential hypertension 11/24/12 I10 Medical History Medical History Grief Headache Chest pain (06/27/12) atypical Pt. states nothing came of it from cardiac work up Surgical History Surgical History Status post repair of anterior cruciate ligament Status post total right knee replacement DOS: 02/17/17 Dr. Russell Replacement of total knee joint (02/17/17) (R) DR. RUSSELL Repair, ACL (~12/1996) [place] replacement of right knee Tobacco Smoking/Tobacco Use Status: Former Tobacco Use Smokeless tobacco user: snuff Passive smoking exposure: No Second hand exposure: Yes Alcohol Alcohol Intake: current Alcohol intake frequency: a few times a week Alcohol type: beer Substance Use Substance use: Never Substance use type: does not use Vital Signs and Lab Results Vital Signs Most Recent Vital Signs in EMR: Most Recent Vital Signs Temp Pulse Resp BP Pulse Ox 36.6 C 65 16 128/98 H 16 L 01/26/23 06:33 01/26/23 06:33 01/26/23 06:33 01/26/23 06:33 01/26/23 06:33 Lab Results Blood Type / Crossmatch: 2 No Data to Display Complete Blood Count: 2 No Data to Display Complete Metabolic Panel: 2 No Data to Display Liver Function Panel: 2 No Data to Display Coagulation Panel: 2 No Data to Display Cardiac Panel: 2 No Data to Display Arterial Blood Gas: 2 No Data to Display Venous Blood Gas: 2 No Data to Display Pancreas Panel: 2 No Data to Display Thyroid Panel: 2 No Data to Display Infectious Disease: 2 No Data to Display Blood Cultures: 2 No Data to Display Toxicology Panel: 2 No Data to Display Imaging and Studies Imaging and Studies Study information below may be from another EMR and interpreted by another provider. Please see original notes in EMR for more complete details. EKG Summary: EKG PATIENT NAME: Camilo Le UNIT #: [id number] ORDERING PROVIDER: Yobani Carrasoc M.D. PRIMARY CARE PROVIDER: ASTRID FELTON NP DATE/TIME OF SERVICE: 11/04/22 0054 : 1965 PERFORMING LOCATION: ER APPROVED REPORT Exam: Resting ECG Reason for Exam: chest pain Patient Location: E HR:57 bpm ECG Measurements Heart Rate 57 AXIS NE 171 P 33 QRSd 92 QRS 0 QT 400 [id number] QTc 391 Conclusion Sinus bradycardia...rate< 60 Indeterminate axis...QRS axis indeterminate Inferior infarct, old...Q >35mS, II III aVF - <Electronically signed by YOBANI CARRASCO MD in [place]> E-Sign Date: 11/04/22 E-Sign Time: 0107 ADDENDUM APPROVED REPORT Exam: Resting ECG Reason for Exam: chest pain Patient Location: E HR:57 bpm ECG Measurements Heart Rate 57 AXIS NE 171 P 33 QRSd 92 QRS 0 QT 400 [id number] QTc 391 Conclusion Sinus bradycardia...rate< 60 Indeterminate axis...QRS axis indeterminate Inferior infarct, old...Q >35mS, II III aVF I have reviewed and interpreted ECG and agree with software generated interpretation. Electronically signed by: <Electronically signed by Jessica Clemens M.D. in [place]> 11/04/22 0819 Cosigned by: Stress Test Summary: STRESS TEST PATIENT NAME: CAMILO LE UNIT #: [id number] ADMITTING PROVIDER: GUSTABO WHITLEY MD PRIMARY CARE PROVIDER: Sebastian Brand M.D. DATE OF SERVICE: : 1965 APPROVED REPORT Exam: Exercise Treadmill Patient Location: Out-Patient Room/Bed: Stress Nurse: Daja Freitas RN BMI: 34.84 Baseline Rhythm: Sinus Rhythm Indications: Chest Pain. Medical History Medical History: Angina, HTN Cardiac Medications: Metoprolol. Amlodipine-Benazepril., Allergies: No known drug allergies Cardiac Risk Factors: HTN, FHX of CAD Pretest Chest Pain Characteristics: Non-exertional Chest pain Exercise History: Physically active Lung Sounds: Clear to auscultation Heart Sounds: Regular Stress Test Details Test: Exercise stress testing was performed using a Lopez protocol. Rest Stress HR Resting HR Supine: 61 bpmMax Heart Rate (APMHR): 169 bpm Resting HR Standin bpmTarget HR (85% APMHR): 143 bpm Max HR Achieved: 174 bpm % of APMHR: 102 HR response to stress: Normal HR response to stress BP Resting BP Supine: 160/100 mmHg Resting BP Standin/100 mmHg Max BP: 160/112 mmHg Recovery BP: 160/98 mmHg BP response to stress: Normal blood pressure response to stress. Comment: Hypertension at pre-exercise baseline ECG Resting ECG: Sinus Rhythm Stress ECG: Sinus Tachycardia ST Change: No significant ST segment changes Arrhythmia: VPC's Recovery ECG: Sinus Rhythm Recovery ST Change: No significant ST segment changes Recovery Arrhythmia: None Clinical Reason for Termination: Fatigue, Target HR Achieved Stress Symptoms: General Fatigue Exercise duration: 10 min00 sec Highest Stage Reached: Stage 4: 4.2 mph at 16% grade. Exercise capacity: 11.81 METs Functional Capacity: Average Capacity Scale: Active Angina Score: None Stress ECG Conclusion 1. The patient exercised for 10 minutes (12 METS) 2. Exercise was stopped due to general fatigue. Rate-pressure product was 28,000. 3. There were no ischemic changes on the ECG during exercise. 4. The Barragan Score ( 10) estimates an annual cardiovascular mortality of 0% and a five year survival of 96%. Using the Barragan Score there is a low probability of any angiographic coronary disease. Protocol Used: Lopez Protocol Stress Test Summary STAGETime (mins)Speed (mph)Grade (%)HRBPSYMPTOMSMETS Eboppk63644/100 Mgqojpcw29749/100 [id number]/1104.6 [id number]/1107 [id number]/10997.2 1 min dhpymncj000470/104 4 min qxqnvkjy019091/98 7 min ieatxczi89239/98 - Dictated by: GUSTABO WHITLEY MD Dictated:: 05/01/19 0846 <Electronically signed by Gustabo Whitley M.D. in [place]> 05/01/19 1041 Transcribed Date: Transcribed Time: By: APRIL This is privileged, confidential information, intended only for the provider named. Any use or distribution by any person other than this provider is strictly prohibited. If you receive this report in error, please notify us immediately at [phone] and return the original report to us at the address above. Thank you. Echocardiogram Summary: ECHOCARDIOGRAM REPORT PATIENT NAME: CAMILO LE UNIT #: [id number] ADMITTING PROVIDER: DENIS JOHNSON MD PRIMARY CARE PROVIDER: CONRADO MURRY MD DATE OF SERVICE: 11/20/12 : 1965 DATE: November 20, 2012 ____ IN PATIENT _X__ OUT-PATIENT ORDERING PHYSICIAN: Miguel Murry M.D. HEIGHT: 5 FT 9 IN WEIGHT: 220 LBS BSA: 2.2 m2 STUDY INDICATIONS: Shortness of breath and edema. FINDINGS: LEFT VENTRICLE/LVEF: LVEF approximately 65%. Left ventricle is mildly dilated. RIGHT VENTRICLE: Normal size and function. AORTIC VALVE: No aortic stenosis. Mild aortic insufficiency. MITRAL VALVE: Mild to moderate mitral insufficiency. No stenosis. TRICUSPID VALVE: Mild tricuspid insufficiency. RSV/PA/RIGHT ATRIAL PRESSURE: Pulmonary artery pressure estimated at 15-20mmHg plus right atrial pressure. Right atrial pressure estimated at less than 10mmHg. PULMONIC VALVE: Trace pulmonic insufficiency. No stenosis. ATRIA: Left atrium, right atrium. Moderate left atrial enlargement. The right atrium is normal. DIASTOLIC INDICES: GREAT VESSELS: The inferior vena cava is normal in size and collapses with inspiration. PERICARDIUM: No effusion. RHYTHM: Sinus SUMMARY: Normal biventricular size and systolic function. 1-2+ MR. Pulmonary artery pressures within normal limits. Left atrial enlargement. No prior study. MEASUREMENTS: LVESD 41 mm LVEDD 61 mm IVS 6 mm PW 7 mm Ascending Aorta 31 mm AO. Root 37 mm AV 20 mm AO Velocity 1.4 m/sec LA 25 cm sq. RA 12 cm sq. Right atrial pressure mmHg AV-PK/M 7.5/4.6 mmHg LVOT size 20 mm LVOT gradient 5.5/2.6 mmHg Deceleration time msec Isovolumic relaxation time msec E/A ratio IVC collapses Yes No - Dictated by: DENIS JOHNSON MD Dictated:: 11/20/12 1551 <Electronically signed by DENIS JOHNSON MD> 12/11/12 1632 Transcribed Date: 11/20/12 Transcribed Time: 1620 By: This is privileged, confidential information, intended only for the provider named. Any use or distribution by any person other than this provider is strictly prohibited. If you receive this report in error, please notify us immediately at [phone] and return the original report to us at the address above. Thank you. Anesthesia Assessment and Plan Anesthesia History Personal History: No History of Anesthesia Complications Family History: No Family History of Anesthesia Complications Exercise Tolerance Exercise Tolerance: Metabolic Equivalents>4 Pertinent Negatives Pertinent Negatives: No Symptoms of GERD, No Major Cardiovascular Symptoms or Complaints, No Major Pulmonary Symptoms or Complaints and No History of CVA/TIA Cardiac & Pulmonary Exam Cardiac Exam: Normal S1/S2 Heart Sounds Pulmonary Exam: Clear Bilateral Breath Sounds Implantable Cardiac Device Does patient have a Pacemaker or an ICD?: No Airway Exam Known Difficult Airway: No Mallampati Class: 3 Mouth Opening: Normal (> 3cm) Thyromental Distance: Greater than 3 cm Facial Hair: Full [place] Neck Range of Motion: Full ROM Neck Circumference: Normal Teeth Condition: Normal Dentition and Loose or Chipped Tooth Numberin 1. Patient indicates chipped tooth 2. Patient indicates chipped tooth ASA Classification ASA Score: ASA 2 Emergency Case?: No NPO Status NPO Status: NPO Clears >2 hours, Solids >8 hours Anesthesia Plan Resuscitation Status: Full Code Anesthesia Technique: General Anesthesia Airway Planned: Endotracheal Tube Monitors Used: Standard Monitors
[2023-01-26] MEDS: Gabapentin 300 MG CAP 600 MG PO (06:49)
[2023-01-26] MEDS: Acetaminophen 500 MG TAB 1000 MG PO (06:50)
[2023-01-26] MEDS: Celecoxib 200 MG CAP PO (06:50)
--- NOTE | 2023-01-26 07:03 | HPE_ITS ---
Assessment and Plan Assessment and plan (1) Biliary colic: Status: Inactive Assessment and plan: Serafin is a pleasant 57-year-old gentleman with several episodes of biliary colic. The last 1 took him to the emergency department. We had a long conversa tion about the pathophysiology of biliary colic as well as the surgery itself and its possible complications. After our conversation patient had a good understanding of both the procedure as well as its possible complications. Risks, benefits, complications were reviewed with the patient in the office. Complications include but are not limited to bleeding, infection, injury to stomach, small bowel and large bowel, injury to the pancreas, injury to the common bile duct necessitating drainage and referral to tertiary center for repair, bile leak, adverse reactions to the medications, complications of intubation including a sore throat or injury to the uvula, [place], stroke and even . Questions were entertained and answered to her satisfaction and she wished to proceed. No guarantees were given or implied. Proceed with Laparoscopic Cholecystectomy History of Present Illness Narrative: Serafin is in [facility] today for his Laparoscopic Cholecystectomy. I saw him back in October because he had had several attacks of right upper quadrant/epigastric pain. He states that when the pain happens it quite severe and he starts to profusely sweat. The last 3 of these episodes have happened after he eats dinner which is his biggest meal of the day. He had a CT scan done in the emergency department on November 04. CT scan notes stones but no pericholecystic fluid or gallbladder wall thickening. I did review the CT scan today myself. His labs on November 04 showed no elevated white blood cell count. He did have a slight bump in his AST at 47 and his ALT at 73. His lipase was also slightly elevated at 101. Total bili was normal. He does have some nausea when these episodes happen but no vomiting. He has not had any episodes of diarrhea with these episodes of pain. His past medical history significant for hypertension. He is seeing cardiology for that because it is hard to control. He is on amlodipine, metoprolol and the diuretic eplerenone. He is on omeprazole for his GERD which is well controlled. He does not complain of chest pain or shortness of breath. PFSH All Active Problems Serum lipase elevation (Chronic) Increased body mass index (BMI) (Acute) GERD (gastroesophageal reflux disease) (Chronic) Alcohol use disorder (Acute) Dilated bile duct (Acute) Hyperplastic colon polyp (Acute) Cholelithiasis (Acute) Diverticula of colon (Acute) Essential hypertension (Chronic 11/24/12) Medical History Grief Headache Chest pain (06/27/12) atypical Pt. states nothing came of it from cardiac work up Surgical History Status post repair of anterior cruciate ligament Status post total right knee replacement DOS: 02/17/17 Dr. Block Replacement of total knee joint (02/17/17) (R) DR. BLOCK Repair, ACL (~12/1996[place] replacement of right knee Family History Mother , 63 Cancer Father , 63 Essential hypertension Heart disease Pancreatic cancer Sister No problems noted. Sister , 40 No problems noted. Brother No problems noted. Brother Hyperlipidemia Maternal Grandfather , 72 Heart disease Paternal Grandfather , 70 Neoplasm Maternal Grandmother , 93 Diabetes Paternal Grandmother , 90 Diabetes Son Asthma Daughter Depression Brother No problems noted. Social History Smoking/Tobacco Use Status: Former Tobacco Use tobacco type: cigarettes and cigars Quit Date: 02/29/92 Smokeless tobacco user: snuff Second Hand Exposure: Yes Smoking risk assessment performed?: Yes Alcohol Intake: current Alcohol Intake frequency: a few times a week Alcohol type: beer Drug use: Never Substance use type: does not use Caregiver/Support person: No Household members: children Housing: apartment Communication Needs: None Do you need help understanding health information?: Never current occupation: A [employer] Pets and animals: Yes Pets and animals: cat(s) Sexually active: Yes Do you think of yourself as: straight/heterosexual Current gender identity: male What is your relationship status?: How often do you talk on the phone with friends or family?: once per week How often do you get together with friends or relatives?: once per week How often do you attend presybeterian or catholic services?: 1-3 times per year Do you belong to any clubs or organized social groups?: yes Panel score (0-1 are the most socially isolated patients): 1 What type of physical activity do you participate in: other Details: golf, bowling Duration: 15-30 minutes/day Frequency: 5-6 times per week Alana/Shinto: Latter Day Special alana needs: No Seatbelt use: always Helmet use: Yes Helmet use: always Drive intox or ride w/intox 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 Do you feel safe at home: Yes Do you feel safe in your relationship?: Yes Victim of physical abuse: No Victim of emotional abuse: No Victim of sexual abuse: No Meds Allergies and Home Medications Allergies Allergy/AdvReac Type Severity Reaction Status Date / Time No Known Allergies Allergy Verified 01/26/23 06:41 Home Medications Medication Instructions Recorded Confirmed Type ibuprofen 600 mg tablet 600 mg PO TID #90 tabs 06/04/21 01/26/23 Rx amlodipine 5 mg tablet 5 mg PO DAILY #90 tabs 10/13/21 01/26/23 Rx omeprazole 40 mg capsule,delayed 40 mg PO BID PRN only taking as 01/04/22 01/26/23 Rx release needed about x1 week #30 caps eplerenone 50 mg tablet 50 mg PO BID 02/17/22 01/26/23 History metoprolol succinate 100 mg 100 mg PO DAILY #90 tabs 12/06/22 01/26/23 Rx tablet,extended release 24 hr Exam Const General: cooperative, comfortable and no acute distress Nutritional Appearance: average body habitus Orientation: alert and oriented x3 HENMT Head: normocephalic and atraumatic Resp Effort & Inspection: normal respiratory effort Auscultation: clear to auscultation bilaterally Cardio Rate: regular rate Rhythm: regular rhythm GI Inspection: normal to inspection Palpation: soft, no hepatosplenomegaly and nontender Results Last Vital Signs Temp 97.9 F 01/26/23 06:33 Pulse 65 01/26/23 06:33 Resp 16 01/26/23 06:33 BP 128/98 H 01/26/23 06:33 Pulse Ox 16 L 01/26/23 06:33
--- NOTE | 2023-01-26 07:07 | W.PM.OP ---
Date of service: 01/26/23 Time of Service: 08:34 Operative Note Operative Note DATE OF PROCEDURE: 01/26/23 PRE-OP DIAGNOSIS: Biliary colic POST-OP DIAGNOSIS: same PROCEDURE: Laparoscopic Cholecystectomy SURGEON: Lisa Calderon ALTERATION TAILOR APPRENTICE: Jenny Paredes ANESTHESIA TYPE: Local By Surgeon and General LMA/ETT Refer to Anesthesia Record ESTIMATED BLOOD LOSS: 25 PATHOLOGY: other (Gallbladder) COMPLICATIONS: None Patient was transported to: PACU Patient's condition: stable Indications: Serafin is a pleasant 57-year-old gentleman with several episodes of biliary colic. The last 1 took him to the emergency department. We had a long conversation about the pathophysiology of biliary colic as well as the surgery itself and its possible complications. After our conversation patient had a good understanding of both the procedure as well as its possible complications. Risks, benefits, complications were reviewed with the patient in the office. Complications include but are not limited to bleeding, infection, injury to stomach, small bowel and large bowel, injury to the pancreas, injury to the common bile duct necessitating drainage and referral to tertiary center for repair, bile leak, adverse reactions to the medications, complications of intubation including a sore throat or injury to the uvula, [place], stroke and even . Questions were entertained and answered to her satisfaction and she wished to proceed. No guarantees were given or implied. Findings: Normal appearing Gallbladder. Cholelithiasis. Normal Cystic Bile duct Procedure Description: After informed consent was obtained the patient was brought to the operating room, placed in a supine position and monitors were applied. SCDs were applied to his lower extremities and he was placed under general anesthesia and intubated without difficulty. Her abdomen was then prepped and draped in a sterile fashion using ChloraPrep. At this point a timeout was done and the patient's name, date of , procedure type, allergies to medications, metal in her body, antibiotic and DVT prophylaxis was reviewed. Fire risk was assessed. At this point 0.25% Bupivocaine was injected just above the umbilicus into the dermis and subcutaneous tissue. A 10 mm incision was made with an 11 blade. The subcutaneous tissue was dissected with a hemostat down to the fascia. The skin next to the incision was grasped with penetrating towel clamps and while pulling up on the skin a 5 mm port was placed under direct visualization. The abdomen was insuflated and then 3 more ports were placed. A 12 mm port was placed in the subxiphoid area and two 5 mm ports were placed in the right upper quadrant. The liver was inspected and looked normal. The patient's bed was then turned to the left and her head was brought up. The gallbladder was grasped at the body and pushed towards the right shoulder, this allowed me to visualize the neck of the gallbladder. The neck was grasped and pulled towards the right flank and down allowing me to visualize the lymph node. Using a [place] dissector with cautery the lymph node was gently dissected away from the tissues and the fatty tissue was also dissected away. The cystic duct was identified it was normal in size. The duct was dissected 360 degrees using the [place] dissector in order for me to visualize its entrance into the gallbladder. Liver was noted behind it. There were no other structures right behind. Critical view was achieved. 3 clips were placed one proximal and 2 distal and the cystic duct was cut. The cystic artery was then identified and dissected 360 degrees. It was located just posterior to the cystic duct. It was visualized going into the gallbladder. Once dissected 3 more clips were placed one proximal and 2 distal and the artery was cut. Using the hook dissector the gallbladder was then dissected away from the liver bed and placed into an Endo Catch bag and pulled through the 12 mm port site. The 12 mm port was placed back into the abdomen under direct visualization. The liver bed was inspected no bleeding was noted. I did have some spill of light green bile. The abdomen was then irrigated with 2.5 liters of normal saline until the effluent was clear. Once all the fluid was suctioned out, the 12 mm and the 2 right upper quadrant ports were removed under direct visualization and no bleeding was noted from the fascia. The abdomen was deflated completely and lastly the umbilical port was removed. The fascia of the subxiphoid incision was closed with a 0 Vicryl figure of eight suture. The skin was cleaned and the incisions were closed with 4-0 Vicryl. The skin was dried and dermabond was applied over the closed incisions. Needle, instrument and sponge counts were correct at the end of the case. At this point the patient was woken up, extubated and taken back to recovery in stable condition. There were no immediate complications.
--- NOTE | 2023-01-26 07:31 | W.PM.DSUDISC ---
Date of service: 01/26/23 Time of Service: 11:00 Discharge Plan Disposition Patient Disposition: Home Condition: Stable Discharge Details Reason For Visit: Gallbladder surgery Attending Provider: Lisa Calderon Primary Care Provider: Nik Toledo Home Meds and New Rx's Prescriptions: New oxycodone 5 mg tablet 5 mg PO Q6H PRNQty: 14 0RF Continued ibuprofen 600 mg tablet 600 mg PO TID Qty: 90 1RF eplerenone 50 mg tablet 50 mg PO BID amlodipine 5 mg tablet 5 mg PO DAILY Qty: 90 3RF omeprazole 40 mg capsule,delayed release(DR/EC) 40 mg PO BID PRN (Reason: only taking as needed about x1 week) Qty: 30 1RF metoprolol succinate 100 mg tablet extended release 24 hr 100 mg PO DAILY Qty: 90 3RF Discharge Instructions Instructions: Low Fat Diet (DC), Laparoscopic Cholecystectomy (DC) Additional Instructions: Activity at Home after surgery: 1. Make sure you walk around the house 2. You should be able to climb a flight of stairs 3. No driving while in pain or taking pain medications 4. No strenuous activity or heavy lifting for 2 weeks (laparoscopic surgery) Diet, Nutrition, & wound healin. Avoid alcohol until after you are recovered from your surgery 2. Make sure to eat plenty of lean protein (meat, fish, eggs, cottage cheese, beans) 3. Eat a variety of fruits and vegetables. Eat plenty of high fiber foods to avoid constipation. 4. Drink plenty of liquids to stay hydrated and avoid constipation Pain Medications: 1. Tylenol 650mg every 6 hours as needed and Ibuprofen 600 mg every 6 hours as needed. You may alternate between the 2 medications every 3 hours 2. If a narcotic has been prescribed take as directed only for breakthrough pain For Constipation: 1. Take Milk of Magnesia or MiraLax as needed for constipation Other: 1. You may shower daily. Do not scrub the incisions 2. Do not soak the incisions for 1 week 3. You may alternate ice and heat as needed for pain and swelling Wound Care: 1. Keep the incisions clean and dry Please call our office if you develop: 1. Fevers >101.5 2. Nausea or Vomiting 3. Worsening pain 4. Redness and thick discharge from the wounds If after hours please call the Hospital at and ask to speak to the on-call surgeon Stand Alone Forms: Anesthesia Discharge InstAra Tinajero (DSU) Referrals: Lisa Calderon MD [ [facility] STAFF PHYSICIAN] - 02/07/23 8:00 am Activity:: see above Shower/Bathe:: 24 hours Diet:: low fat Discharge Orders Discharge Orders: Discharge Order (Routine); Ordered 01/26/23 Ordered By: Lisa Calderon DS: Diagnosis Discharge Diagnosis (1) Biliary colic: Status: Inactive Asessment and Plan: The patient is doing well post-op from his Gallbladder surgery.? He is having no nausea or vomiting. He is tolerating liquids and a snack. The pt is not having any chest pain or SOB.? Hispain is adequately controlled. He has been able to urinate.? ?HEENT:? no eye pain/drainage/redness/swelling. Mild sore throat ?Cardio- NSR, no chest pain, BP stable- see VS record ?Pulm: no sob or productive cough. No hemoptysis ?Incision- dressing is c/d/i w/ no excessive bleeding or drainage ?I discussed with the patient the findings at the time of surgery and the patient?s progress. ?We reviewed expectations at home; what the patient could expect for recovery time, and in the post-operative period.? We discussed the importance of walking to avoid blood clots and pneumonia.? We discussed and reviewed the patient's post-operative wound care and dressing needs.?? We reviewed their step-blank pain management plan, Rx called to the pharmacy of their choice.? We reviewed activity and limitations-see discharge instructions. We reviewed warning signs, and when to seek medical attention- see d/c instructions.?? Patient was given a postoperative follow-up appointment. Patient verbalized understanding of their postoperative instructions, how do to take care of themselves and their incision, and the pain management plan. Please see discharge instructions.?
[2023-01-26] MEDS: AMPICILLIN/SULBACTAM 3 GM in Normal Saline 100 ML IVPB (07:53)
--- NOTE | 2023-01-26 08:17 | GB_PTH ---
PATIENT: Serafin Mayes LOC: [facility] U#:[id number] AGE/SX: 57/M ROOM: RE01/26/[address]: Lisa Calderon MD : [id number] BED: DIS: 01/26/2023 SPEC #: [id number] RECD: 01/26/23 12:41 STATUS: JEB REQ #: [id number] ADILIA: 01/26/23 08:[address]: Lisa Calderon DEPT: Surgical Specimen RECD BY: Diana Henry ENTERED: 01/26/23 12:42 SP TYPE: GB OTHR DR: Nik Toledo, JARED Tissues: 1 - GALLBLADDER Procedures: GROSS AND MICRO LEVEL 3 Comments: [id number]
[2023-01-26] MEDS: Bupivacaine 0.25% Pres-Free 30 ML VIAL (08:27)
[2023-01-26] MEDS: fentaNYL 100 MCG/2 ML VIAL IVP (09:18)
[2023-01-26] MEDS: oxyCODONE 5 MG TAB PO (10:36)
--- NOTE | 2023-01-26 10:54 | W.ANESPOSTOP ---
Postoperative Evaluation Date, Time and Location Date Performed: 01/26/23 Time Performed: 09:22 Patient Location: PACU Vital Signs Most Recent Imported Vital Signs: Most Recent Vital Signs Temp Pulse Resp BP Pulse Ox 36.1 C L 58 L 16 122/83 96 01/26/23 10:21 01/26/23 10:21 01/26/23 10:21 01/26/23 10:21 01/26/23 10:21 Pain Score Most Recent Pain Score: Most Recent Pain Score Pain Level 5 01/26/23 10:21 Assessment Mental Status: Awake (Alert & Oriented to Patient Baseline) Airway and Respiratory Function: Patent airway with normal (patient baseline) respiratory exam Cardiovascular Function: Hemodynamically Stable Hydration Status: Adequately Hydrated Nausea & Vomiting: No Nausea or Vomiting Pain: Pain is tolerable per patient Peripheral Nerve Block: Patient did not receive a nerve block
== END 2023-01-26 11:38 | disposition home or self-care (01) ==
PROVIDERS: PCP Nurse Practitioner Family; Visit Provider Surgery
PROC: 0FT44ZZ Resection of Gallbladder, Percutaneous Endoscopic Approach (ICD-10-PCS; CPT 47562; principal; 2023-01-26 07:30)
DX: K80.45 Calculus of bile duct with chronic cholecystitis with obstruction (principal); I10 Essential (primary) hypertension; R74.8 Abnormal levels of other serum enzymes; K21.9 Gastro-esophageal reflux disease without esophagitis; F10.90 Alcohol use, unspecified, uncomplicated
CPT/HCPCS: 47562; 88304; J0295; J1100; J2250; J2405; J3010

== ENCOUNTER → 2023-03-25 00:40 | Outpatient (CLI) | payer BC, SELFPAY ==
--- NOTE | 2023-03-25 11:26 | DI.RAD_ITS ---
Exam(s) XR LUMBAR SPINE COMPLETE EXAM: XR LUMBAR SPINE COMPLETE CLINICAL HISTORY: Worsening back pain/failing PT,LT SCIATICA,M54.32. TECHNIQUE: 2D digital imaging was performed. Five views. COMPARISON: No exams were available for comparison FINDINGS: BONES: No fracture or destructive lesion. Vertebral body heights are maintained. Mild facet hypertro phy identified L4-5 and L5-S1.. DISKS: Intervertebral disc spaces are maintained. Minimal endplate osteophytes. ALIGNMENT: Lumbar spinal alignment is within normal limits. SOFT TISSUE: Normal. IMPRESSION: Mild degenerative changes, mainly of the facet joints at L4-5 and L5-S1. DATA REPOSITORY: RADIATION DOSE DELIVERED:
== END ==
PROVIDERS: PCP Nurse Practitioner Family; Visit Provider Nurse Practitioner Family
DX: M54.32 Sciatica, left side (principal)
CPT/HCPCS: 72110

== ENCOUNTER 2023-04-26 06:28 | Emergency (ER) | payer BC, SELFPAY ==
[2023-04-26] VITALS (52 sets, daily range): BP systolic 132–170; BP diastolic 86–102; PULSE 55–83; RESP 17–18; TEMP 36.2–37.2; O2SAT 96–100
--- NOTE | 2023-04-26 06:30 | RT.EKG_ITS ---
APPROVED REPORT Exam: Resting ECG Reason for Exam: chest pain Patient Location: E HR:60 bpm ECG Measurements Heart Rate 60 AXIS TN 186 P 23 QRSd 85 QRS 29 QT 427 T 42 QTc 427 Conclusion normal sinus 60 normal axis no stemi
--- NOTE | 2023-04-26 07:00 | ED.GENADUL_ITS ---
Discharge Plan Disposition Patient Disposition: Home Condition: Stable Discharge Details Clinical Impression: Abdominal pain Primary Care Provider: Nik Toledo ED Provider: Sunny Rider Home Meds and New Rx's Prescriptions: No Action eplerenone 50 mg tablet 50 mg PO BID minoxidil 2.5 mg tablet 2.5 mg PO BID Patient Comments: TAKE 1 TABLET BY MOUTH TWICE DAILY amiloride 5 mg tablet 5 mg PO QHS Patient Comments: TAKE 1 TABLET BY MOUTH NIGHTLY amiloride-hydrochlorothiazide 5-50 mg tablet 1 tab PO DAILY Patient Comments: TAKE 1 TABLET BY MOUTH ONCE DAILY amlodipine 5 mg tablet 5 mg PO DAILY Qty: 90 3RF metoprolol succinate 100 mg tablet extended release 24 hr 100 mg PO DAILY Qty: 90 3RF ibuprofen 600 mg tablet 600 mg PO TID PRN Discharge Instructions Instructions: Abdominal Pain (ED) Additional Instructions: lab work today is reassuring. monitor symptoms and return with any concerns. follow up with your PCP. HPI General Date/Time Provider Initiated Documentation: 04/26/23 06:32 . Limitations to Documentation: no limitations . Information obtained by: patient . HPI Narrative: 57-year-old gentleman with past medical history of GERD, alcohol use disorder, cholelithiasis status postcholecystectomy cystectomy, hypertension presents for acute onset abdominal pain. Reports that pain started early this morning. It woke him from sleep. It was severe, associated with a sensation of nausea. Also associated with diaphoresis. Pain started in his belly and came up to the top of his belly. He felt some shortness of breath with it. He reports the diaphoresis and the nausea have subsided. He reports that the pain has slightly improved. He reports it was sharp and constant. Has not had pain like this previously. Related Data Home Medications Medication Instructions Recorded Confirmed amlodipine 5 mg tablet 5 mg PO DAILY #90 tabs 10/13/21 04/26/23 eplerenone 50 mg tablet 50 mg PO BID 02/17/22 04/26/23 metoprolol succinate 100 mg 100 mg PO DAILY #90 tabs 12/06/22 04/26/23 tablet,extended release 24 hr amiloride 5 mg tablet 5 mg PO QHS 03/07/23 04/26/23 amiloride 5 mg-hydrochlorothiazide 1 tab PO DAILY 03/07/23 04/26/23 50 mg tablet minoxidil 2.5 mg tablet 2.5 mg PO BID 03/07/23 04/26/23 ibuprofen 600 mg tablet 600 mg PO TID PRN 04/26/23 04/26/23 Previous Rx's Medication Instructions Recorded amlodipine 5 mg tablet 5 mg PO DAILY #90 tabs 10/13/21 metoprolol succinate 100 mg 100 mg PO DAILY #90 tabs 12/06/22 tablet,extended release 24 hr Allergies Allergy/AdvReac Type Severity Reaction Status Date / Time dermabond AdvReac Mild Hives Uncoded 03/07/23 16:19 General Stated Complaint: Chest Pain JOSE LUIS: 3 Exam Narrative Exam Narrative: Review of Systems: All systems reviewed & are unremarkable except as noted in HPI and below Well-developed, no acute distress NCAT PERRL, normal conjunctiva RRR, no murmurs Unlabored respiratory effort, clear bilaterally Nondistended abdomen, soft nontender Extremities w/o deformity, no cyanosis, no edema Clammy skin no focal neurologic deficits Appropriate mood and affect Course Vital Signs Vital signs: Vital Signs Temperature 37.2 C 04/26/23 06:31 Pulse 55 L 04/26/23 06:31 Respiratory Rate 18 04/26/23 06:31 Blood Pressure 170/102 H 04/26/23 06:31 Temperature 37.2 C 04/26/23 06:31 Temperature Source Tympanic 04/26/23 06:31 Pulse 55 L 04/26/23 06:31 Respiratory Rate 18 04/26/23 06:31 Respiratory Effort Normal 04/26/23 06:51 Blood Pressure 170/102 H 04/26/23 06:31 Blood Pressure Position Standing 04/26/23 06:31 Oxygen Delivery Method Room Air 04/26/23 06:31 Oxygen Flow Rate 0 04/26/23 06:31 Pain Level 9 04/26/23 06:31 Medical Decision Making Emergent evaluation of abdominal pain. Patient is not describing true chest pain, but the associated symptoms of nausea and diaphoresis are slightly concerning for an anginal equivalent. His EKG does not demonstrate an acute ischemic change. He has noted to be hypertensive initially. The patient has a benign abdominal exam. And he reports that his symptoms are otherwise improving. Lab work reviewed, he has mild elevation in AST and ALT likely secondary to alcohol use, he has a nontender right upper quadrant. Recent cholecystectomy but I do not suspect retained stone. Cardiac enzymes x 2 were negative. Patient is hemodynamically stable for discharge. Medical Records Medical records reviewed: Yes I reviewed the patient's medical records. Lab Data Lab results reviewed: Yes I reviewed the patient's lab results. Quality:[facility] Health Related Social Needs: No Data to Display PFSH All Active Problems (Updated 04/26/23 @ 10:38 by Sunny Rider MD) Abdominal pain (Acute) Sciatica, left side (Acute) Serum lipase elevation (Chronic) Increased body mass index (BMI) (Acute) GERD (gastroesophageal reflux disease) (Chronic) Alcohol use disorder (Acute) Dilated bile duct (Acute) Hyperplastic colon polyp (Acute) Cholelithiasis (Acute) Diverticula of colon (Acute) Essential hypertension (Chronic 11/24/12) Medical History Grief Headache Chest pain (06/27/12) atypical Pt. states nothing came of it from cardiac work up Surgical History S/P laparoscopic cholecystectomy (~01/26/23) Status post repair of anterior cruciate ligament Status post total right knee replacement DOS: 02/17/17 Dr. Block Replacement of total knee joint (02/17/17) (R) DR. BLOCK Repair, ACL (~12/1996) [place]-acl replacement of right knee Family History Mother , 63 Cancer Father , 63 Essential hypertension Heart disease Pancreatic cancer Sister No problems noted. Sister , 40 No problems noted. Brother No problems noted. Brother Hyperlipidemia Maternal Grandfather , 72 Heart disease Paternal Grandfather , 70 Neoplasm Maternal Grandmother , 93 Diabetes Paternal Grandmother , 90 Diabetes Son Asthma Daughter Depression Brother No problems noted. 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 Pets and animals: Yes Pets and animals: cat(s) Sexually active: Yes Do you think of yourself as: straight/heterosexual Current gender identity: male What is your relationship status?: How often do you talk on the phone with friends or family?: once per week How often do you get together with friends or relatives?: once per week How often do you attend sikh or jainism services?: 1-3 times per year Do you belong to any clubs or organized social groups?: yes Panel score (0-1 are the most socially isolated patients): 1 What type of physical activity do you participate in: other Details: golf, bowling Duration: 15-30 minutes/day Frequency: 5-6 times per week Alana/Lutheran: Lutheran Special alana needs: No Seatbelt use: always Helmet use: Yes Helmet use: always Drive intox or ride w/intox automation driver: No Do you feel safe at home: Yes Do you feel safe in your relationship?: Yes Victim of physical abuse: No Victim of emotional abuse: No Victim of sexual abuse: No
[2023-04-26] MEDS: Ondansetron 4 MG/2 ML VIAL IVP (07:15)
[2023-04-26] MEDS: Ketorolac 15 MG/ML VIAL 10 MG IVP (07:15)
[2023-04-26 07:18] LABS: Abs Immature Grans 0.02 10^3/uL (0.0-0.06); Absolute Basophil Count 0.03 10^3/uL (0.0-0.2); Absolute Eosinophil Count 0.21 10^3/uL (0.0-0.7); Absolute Lymphocyte Count 2.36 10^3/uL (1.2-3.4); Absolute Monocyte Count 0.78 10^3/uL (0.1-0.8); Absolute Neutrophil Count 3.54 10^3/uL (1.2-6.7); Basophils % 0.4; HCT 41.2 % (40.0-50.0); HGB 14.1 g/dL (13.5-17.5); Immature Grans % 0.3; MCH 30.2 pg (27.0-33.0); MCHC 34.2 % (32.0-36.0); MCV 88 fL (80-95); MPV 9.7 fL (8.0-11.0); Monocytes % 11.2; Neutrophils % 51.1; Platelet Count 269 10^3/uL (130-400); RBC 4.67 10^6/uL (4.36-5.78); RDW 12.3 % (11.8-14.1); RDW-SD 39.7 fL; WBC 6.94 10^3/uL (4.4-10.8)
[2023-04-26 07:41] LABS: ALT 66 U/L (16-63); AST 73 U/L (15-37); Albumin 3.5 g/dL (3.4-5.0); Alkaline Phosphatase 58 U/L (46-116); Anion Gap 7.5 mmol/L (3-11); BUN 15 mg/dL (7-18); Bilirubin, Total 0.5 mg/dL (0.2-1.0); CO2 30.5 mmol/L (21.0-32.0); CREATININE 1.1 mg/dL (0.70-1.30); Calcium 9.7 mg/dL (8.5-10.1); Chloride 103 mmol/L (98-107); Estimated GFR 79.28 (mL/min/1.73m2); Glucose 147 mg/dL (74-106); Lipase 76 U/L (16-77); Magnesium 1.9 mg/dL (1.8-2.4); NT-proBNP 71 pg/mL (<300); Potassium 4.2 mmol/L (3.5-5.1); Sodium 141 mmol/L (136-145); Total Protein 7.7 g/dL (6.4-8.2); Troponin I < 50 ng/L (< or =60)
[2023-04-26] MEDS: Normal Saline Flush 10 ML SYR IVP (08:30)
[2023-04-26 10:31] LABS: Troponin I < 50 ng/L (< or =60)
== END 2023-04-26 10:48 | disposition home or self-care (01) ==
PROVIDERS: Emergency Provider Emergency Medicine; PCP Nurse Practitioner Family
DX: R07.9 Chest pain, unspecified (principal); R06.02 Shortness of breath; Z87.19 Personal history of other diseases of the digestive system; Z90.49 Acquired absence of other specified parts of digestive tract; R11.10 Vomiting, unspecified; R61 Generalized hyperhidrosis
CPT/HCPCS: 80053; 83690; 93005; 96374; 96375; 99284; 83735; 83880; 84484; 85025; 93010; 99283; J1885; J2405

== ENCOUNTER 2023-05-28 12:25 | Emergency (ER) | payer BC, SELFPAY ==
--- NOTE | 2023-05-28 12:15 | RT.EKG_ITS ---
APPROVED REPORT Exam: Resting ECG Reason for Exam: SOB Patient Location: E HR:58 bpm ECG Measurements Heart Rate 58 AXIS NC 185 P 21 QRSd 99 QRS 19 QT 419 T 52 QTc 412 Conclusion Sinus bradycardia...rate< 60 Consider anteroseptal infarct...Q >30mS, dimin R, V1-V2 Narrow complex sinus bradycardia at a rate of 58. Normal axis. Intervals within normal limits. Mil d ST segment straightening leads aVF and V3 through V6. Compared to prior dated earlier this year no significant changes. Of note there do appear to be ST segment depressions in lead I and II in the f irst beat but not the second beat.
[2023-05-28 12:28] VITALS: BP 135/71; PULSE 60; RESP 15; TEMP 35.8; O2SAT 98
[2023-05-28 12:32] VITALS: RESP 15
[2023-05-28 12:49] LABS: Abs Immature Grans 0.02 10^3/uL (0.0-0.06); Absolute Basophil Count 0.03 10^3/uL (0.0-0.2); Absolute Eosinophil Count 0.24 10^3/uL (0.0-0.7); Absolute Lymphocyte Count 3.02 10^3/uL (1.2-3.4); Absolute Monocyte Count 1.01 10^3/uL (0.1-0.8); Absolute Neutrophil Count 3.63 10^3/uL (1.2-6.7); Basophils % 0.4; HCT 42.9 % (40.0-50.0); HGB 14.3 g/dL (13.5-17.5); Immature Grans % 0.3; MCH 29.7 pg (27.0-33.0); MCHC 33.3 % (32.0-36.0); MCV 89 fL (80-95); MPV 9.5 fL (8.0-11.0); Monocytes % 12.7; Neutrophils % 45.6; Platelet Count 344 10^3/uL (130-400); RBC 4.82 10^6/uL (4.36-5.78); RDW 12.2 % (11.8-14.1); RDW-SD 39.9 fL; WBC 7.95 10^3/uL (4.4-10.8)
[2023-05-28] MEDS: Aspirin 81 MG CHEW 324 MG CH (12:50)
[2023-05-28 13:12] LABS: ALT 87 U/L (16-63); AST 103 U/L (15-37); Albumin 3.8 g/dL (3.4-5.0); Alkaline Phosphatase 82 U/L (46-116); Anion Gap 9.2 mmol/L (3-11); BUN 17 mg/dL (7-18); CO2 27.8 mmol/L (21.0-32.0); CREATININE 1.2 mg/dL (0.70-1.30); Calcium 9.5 mg/dL (8.5-10.1); Chloride 101 mmol/L (98-107); Estimated GFR 71.42 (mL/min/1.73m2); Glucose 143 mg/dL (74-106); Magnesium 1.7 mg/dL (1.8-2.4); Potassium 3.1 mmol/L (3.5-5.1); Sodium 138 mmol/L (136-145); Total Protein 8.3 g/dL (6.4-8.2); Troponin I < 50 ng/L (< or =60)
--- NOTE | 2023-05-28 13:15 | DI.CT_ITS ---
Exam(s) CT THORAX ABD/PEL CTA EXAM: CT THORAX ABD/PEL CTA CLINICAL HISTORY: Epigastric pain, diaphoresis. TECHNIQUE: Imaging Protocol: Axial CT angiography was performed with multi-slice acquisition and m ulti-planar and/or 3D reconstructions. CONTRAST MATERIAL: Intravenous: Omnipaque 350 contrast volume:100 mL Oral: No COMPARISON: CT CT ABDOMEN PELVIS W from 12/14/[address] ABDOMEN PELVIS W from 11/04/2022 FINDINGS: CHEST: Tracheobronchial tree: Patent where visualized. Pulmonary parenchyma: No consolidation or dominant measurable mass. No architectural distortion. Ther e is a calcified granuloma in the right upper lobe. Dependent atelectasis is seen in the lung bases. Pulmonary Arteries: Due to the timing of the bolus peripheral pulmonary artery evaluation is suboptim al. No large central pulmonary embolus is present. Mediastinum and Tati: No dominant adenopathy or fluid collection. The esophagus is unremarkable. Visualized thyroid: Unremarkable. Pleura: No effusion or pneumothorax. Heart: The heart is not dilated. No coronary artery calcifications are seen. No pericardial effusion. Aorta: Thoracic aorta non-dilated. No evidence of dissection. Soft Tissues: Unremarkable. Bones: Within normal limits for the patient's age. ABDOMEN AND PELVIS: Abdomen: Celiac axis/mesenteric arteries: No evidence of occlusion or significant stenosis. Renal Arteries: No evidence of occlusion or significant stenosis. There is a single renal artery per fusing each kidney. Aorta: No evidence of occlusion or significant stenosis. No aneurysm or dissection. Atheroscleroti c calcification is present. Pelvis: Iliac Arteries: No evidence of occlusion or significant stenosis. Atherosclerotic calcification is present. Common Femoral Arteries: No evidence of occlusion or significant stenosis. Mild atherosclerotic phu cification is present. ABDOMEN: Liver: Normal density. There is a stable cyst in the right lobe of the liver. No suspicious hepatic masses are seen. Gallbladder and Biliary Tract: Status post cholecystectomy. No significant biliary ductal dilatation is present. Pancreas: Normal density, no abnormal calcifications or inflammatory process. Spleen: Normal. Adrenals: Stable nodularity of the right adrenal gland. The left adrenal gland is unremarkable. Kidneys: Normal size, contour and axis. No radiodense stones or obstructive uropathy. Simple bilatera l renal cysts. No follow-up is recommended. Bowel: There is diverticulosis of the colon, but no evidence of acute diverticulitis. There is no ev idence of bowel obstruction or bowel wall thickening. Appendix is unremarkable. Peritoneal Cavity: No ascites, collection or mesenteric inflammatory response. No free air. Lymph Nodes: Within normal limits. Bones: Within normal limits for the patient's age. Soft Tissues: Unremarkable. PELVIS: Bladder: Symmetric distention, no gross wall thickening. Reproductive Organs: Unremarkable as visualized. Lymph Nodes: Within normal limits. Bones: Within normal limits for the patient's age. IMPRESSION: 1. No evidence of arterial aneurysm or dissection. 2. No evidence of acute pulmonary, abdominal or pelvic process. 3. Incidental findings in the abdomen and pelvis as described above. RADIATION DOSE DELIVERED: Total DLP DATA REPOSITORY: All CT scans at this facility are submitted to the National Radiology Data Registry (NRDR) Dose Index Registry (DIR) with the [employer] (ACR). RADIATION OPTIMIZATION: All CT scans at this facility use at least one of these dose optimization te chniques: automated exposure control; mA and/or kV adjustment per patient size (includes targeted exa ms where dose is matched to clinical indication); or iterative reconstruction.
[2023-05-28] MEDS: Potassium Chloride 20 MEQ TABCR PO (13:41)
[2023-05-28] MEDS: Magnesium Oxide 400 MG TAB PO (13:41)
[2023-05-28 13:55] LABS: Lipase 56 U/L (16-77)
[2023-05-28] MEDS: Normal Saline - Diluent 50 ML VIAL IJ (13:58)
[2023-05-28] MEDS: Omnipaque 350 MG/ML 100 ML BTL IJ (13:58)
[2023-05-28] MEDS: Normal Saline Flush 10 ML SYR IVP (14:00)
--- NOTE | 2023-05-28 14:45 | ED.GENADUL_ITS ---
Discharge Plan Discharge Details Chief Complaint: Chest Pain Primary Care Provider: Nik Toledo ED Provider: Mike Rojas Home Meds and New Rx's Prescriptions: No Action amiloride 5 mg tablet 2.5 mg PO BID Patient Comments: 03/02/2023 Per [facility] [place]phrology. -hb amlodipine 5 mg tablet 10 mg PO DAILY Qty: 90 3RF Rx Instructions: 03/02/23. Per [facility] [place] U[place]. -hb eplerenone 50 mg tablet 50 mg PO BID Patient Comments: 03/02/23 Per [facility] – [place]. Take 100mg AM and 50mg PM. -hb minoxidil 2.5 mg tablet 2.5 mg PO BID Patient Comments: TAKE 1 TABLET BY MOUTH TWICE DAILY amiloride-hydrochlorothiazide 5-50 mg tablet 1 tab PO DAILY Patient Comments: TAKE 1 TABLET BY MOUTH ONCE DAILY metoprolol succinate 100 mg tablet extended release 24 hr 100 mg PO DAILY Qty: 90 3RF ibuprofen 600 mg tablet 600 mg PO TID PRN HPI General Mode of arrival: ambulatory . Date/Time Provider Initiated Documentation: 05/28/23 12:27 . Limitations to Documentation: no limitations . Information obtained by: patient and RN notes reviewed . History of Present Illness 57 year old M presents to the emergency department with the chief complaint of Epigastric pain, described as moderate, severe and similar to prior episodes, Quality is described as sharp, Patient reports no radiation. Patient started experiencing this minute(s) (30) and it has been constant. No relieving factors improve symptom(s), No exacerbating factors reported . Patient notes shortness of breath. Patient did receive the following treatments prior to arrival, none Related Data Home Medications Medication Instructions Recorded Confirmed eplerenone 50 mg tablet 50 mg PO BID 02/17/22 05/28/23 metoprolol succinate 100 mg 100 mg PO DAILY #90 tabs 12/06/22 05/28/23 tablet,extended release 24 hr amiloride 5 mg-hydrochlorothiazide 1 tab PO DAILY 03/07/23 05/28/23 50 mg tablet minoxidil 2.5 mg tablet 2.5 mg PO BID 03/07/23 05/28/23 ibuprofen 600 mg tablet 600 mg PO TID PRN 04/26/23 05/28/23 amiloride 5 mg tablet 2.5 mg PO BID 04/28/23 05/28/23 amlodipine 5 mg tablet 10 mg (2 x 5 mg) PO DAILY #90 tabs 04/28/23 05/28/23 Previous Rx's Medication Instructions Recorded metoprolol succinate 100 mg 100 mg PO DAILY #90 tabs 12/06/22 tablet,extended release 24 hr amlodipine 5 mg tablet 10 mg (2 x 5 mg) PO DAILY #90 tabs 04/28/23 Allergies Allergy/AdvReac Type Severity Reaction Status Date / Time dermabond AdvReac Mild Hives Uncoded 04/29/23 15:43 General Stated Complaint: Chest Pain JOSE LUIS: 3 Review of Systems Constitutional Constitutional: Denies chills, Reports excessive sweating and Denies fever(s) Cardiovascular Cardiovascular: Reports chest pain and Reports dyspnea Respiratory Respiratory: Reports dyspnea Gastrointestinal Gastrointestinal: Reports abdominal pain, Denies heartburn, Reports nausea and Denies vomiting Endocrine Endocrine: Reports excessive sweating Exam Const General: cooperative, healthy appearing, comfortable, no acute distress, not diaphoretic and not ill appearing Nutritional Appearance: average body habitus Orientation: alert, awake and oriented x3 Limitations: mental status not altered Neck Neck: normal visual inspection, full ROM, trachea midline, supple and no anterior neck swelling Carotids: normal carotid upstroke and no bruits Chest Chest: normal inspection of the chest Resp Effort & Inspection: normal respiratory effort and able to speak in complete sentences Auscultation: clear to auscultation bilaterally Cardio Jugular venous pressure: no JVD Palpation: normal PMI Rate: regular rate Rhythm: regular rhythm Heart Sounds: S1 normal, S2 normal, no click, no gallops, no murmurs and no rubs Bruits: no abdominal aortic bruits and no carotid bruits Pulses: radial pulses present bilaterally 2+ GI Inspection: normal to inspection Palpation: soft, no aortic enlargement, no pulsatile masses and tender in the epigastrum Auscultation: normal bowel sounds Skin General skin exam: no rashes or lesions noted Neuro General: patient alert, patient awake, patient oriented x3, tone normal and moves all extremities Course Vital Signs Vital signs: Vital Signs Temperature 35.8 C L 05/28/23 12:28 Pulse 60 05/28/23 12:28 Respiratory Rate 15 05/28/23 12:28 Blood Pressure 135/71 05/28/23 12:28 Pulse Oximetry 98 05/28/23 12:28 Temperature 35.8 C L 05/28/23 12:28 Temperature Source Tympanic 05/28/23 12:28 Pulse 60 05/28/23 12:28 Respiratory Rate 15 05/28/23 12:32 Respiratory Effort Normal 05/28/23 12:32 Respiratory Depth Normal 05/28/23 12:32 Respiratory Pattern Normal 05/28/23 12:32 Blood Pressure 135/71 05/28/23 12:28 Pulse Oximetry 98 05/28/23 12:28 Pain Level 9 05/28/23 12:28 Lab/Test Results Lab/Test Results: Laboratory Tests Range/Units 05/28/23 12:41 WBC (4.4-10.8) 10^3/uL 7.95 RBC (4.36-5.78) 10^6/uL 4.82 Hgb (13.5-17.5) g/dL 14.3 Hct (40.0-50.0) % 42.9 MCV (80-95) fL 89 MCH (27.0-33.0) pg 29.7 MCHC (32.0-36.0) % 33.3 RDW (11.8-14.1) % 12.2 Plt Count (130-400) 10^3/uL 344 MPV (8.0-11.0) fL 9.5 Immature Gran % 0.3 Neutrophils % 45.6 Lymphocytes % 38.0 Monocytes % 12.7 Eosinophils % 3.0 Basophils % 0.4 Nucleated RBC % (0.0-0.3) % 0.0 Absolute Neutrophils (1.2-6.7) 10^3/uL 3.63 Absolute Lymphocytes (1.2-3.4) 10^3/uL 3.02 Absolute Monocytes (0.1-0.8) 10^3/uL 1.01 H Absolute Eosinophils (0.0-0.7) 10^3/uL 0.24 Absolute Basophils (0.0-0.2) 10^3/uL 0.03 Sodium (136-145) mmol/L 138 Potassium (3.5-5.1) mmol/L 3.1 L Chloride (98-107) mmol/L 101 Carbon Dioxide (21.0-32.0) mmol/L 27.8 Anion Gap (3-11) mmol/L 9.2 BUN (7-18) mg/dL 17 Creatinine (0.70-1.30) mg/dL 1.2 Est GFR (CKD-EPI 2020) (mL/min/1.73m2) 71.42 Glucose (74-106) mg/dL 143 H Calcium (8.5-10.1) mg/dL 9.5 Magnesium (1.8-2.4) mg/dL 1.7 L Total Bilirubin (0.2-1.0) mg/dL 1.0 AST (15-37) U/L 103 H ALT (16-63) U/L 87 H Alkaline Phosphatase (46-116) U/L 82 Troponin I (< or =60) ng/L < 50 Total Protein (6.4-8.2) g/dL 8.3 H Albumin (3.4-5.0) g/dL 3.8 Lipase (16-77) U/L 56 Medical Decision Making Patient presenting to the emergency department for chief complaint of severe epigastric pain, nausea, and diaphoresis. Symptoms started approximately 30 minutes prior to arrival and was simply just walking down some stairs. Patient has had other episodes similar to this with 1 being approximately 1 month ago with negative ER labs and referral to primary care provider with suspicion of GERD. Patient has past medical history of hypertension, alcohol abuse disorder, diverticuli, GERD. Physical exam shows significant epigastric tenderness with some noted diaphoresis otherwise nonspecific exam. Patient does state family history of CA in patient's father at similar age. Do feel there is potential that this is potential cardiac equivalent discomfort especially given diaphoresis and sudden onset so we will perform EKG and laboratory workup. Will also perform CTA to rule out abdominal aneurysm or other pathology. Pending results will give aspirin and GI cocktail. Please see physician interpretation for full interpretation of EKG but upon my review patient is in sinus rhythm does not have any findings to suggest acute STEMI. Labs reviewed and CBC nondiagnostic, CMP does show slightly low potassium of 3.1 and magnesium of 1.7 which will orally replete. Glucose is slightly elevated at 143 and AST slightly elevated at 103 and ALT of 87 otherwise nondiagnostic labs. These labs are similar to what has been seen in the past. CT imaging shows no acute emergent findings. Will continue with delta troponin given initial onset only 30 minutes prior to arrival. Patient was reassessed and did state significant improvement of discomfort after GI cocktail. Will continue to monitor. Imaging Data Radiologic Study: Imaging: CT Scan Radiologist's impression: Exam(s) PROCEDURE INFORMATION: Exam: CTA Chest With Contrast CTA Abdomen and Pelvis With Contrast Exam date and time: 05/28/2023 1:58 PM Age: 57 years old Clinical indication: Injury or trauma; Other: Epigastric pain, diaphoresis; Prior surgery; Surgery date: 6+ months; Surgery type: Cholecystectomy TECHNIQUE: Imaging protocol: Computed tomographic angiography of the chest with contrast. Exam focused on the arteries. Computed tomographic angiography of the abdomen and pelvis with contrast. Exam focused on the arteries. 3D rendering (Not supervised by radiologist): MIP and/or 3D reconstructed images were created by the technologist. Contrast material: OMNIPAQUE 350; Contrast volume: 100 ml; Contrast route: INTRAVENOUS (IV); COMPARISON: CT THORAX ABD/PEL CTA 04/22/2019 4:57 AM FINDINGS: VASCULATURE: Pulmonary arteries: Normal. No pulmonary emboli. Aorta: No aortic aneurysm. No aortic dissection. Celiac trunk and mesenteric arteries: No occlusion or significant stenosis. Renal arteries: No occlusion or significant stenosis. Right iliac arteries: No occlusion or significant stenosis. Left iliac arteries: No occlusion or significant stenosis. CHEST: Lungs: No lobar consolidations. Minimal reticulation in the dependent portions of the lungs consistent with subsegmental atelectasis. Few scattered calcified Pleural spaces: Unremarkable. No pneumothorax. No pleural effusion. Heart: Unremarkable. No cardiomegaly. No pericardial effusion. ABDOMEN AND PELVIS: Liver: Lucencies in the liver cysts. The largest measures 1.5 cm in the lateral portion of the right lobe. No solid masses. Gallbladder and bile ducts: There has been a cholecystectomy. There is no common bile duct dilation. Pancreas: Unremarkable. No mass. No ductal dilation. Spleen: Unremarkable. No splenomegaly. Adrenal glands: Unremarkable. No mass. Kidneys and ureters: No hydronephrosis or nephrolithiasis. The right kidney has a 1.5 cm simple appearing cyst along its lateral cortex. The left kidney has additional simple cysts. The largest measures 2.2 cm. No follow up imaging is recommended. Stomach and bowel: Unremarkable. No obstruction. No mucosal thickening. Appendix: No evidence of appendicitis. Intraperitoneal space: Unremarkable. No free air. No significant fluid collection. Urinary bladder: Unremarkable. No mass. Reproductive: Unremarkable as visualized. Lymph nodes: Unremarkable. No enlarged lymph nodes. Bones/joints: Unremarkable. No acute fracture. Soft tissues: Unremarkable. IMPRESSION: 1. Examination negative for pulmonary emboli, aortic aneurysm or dissection. 2. No acute findings. Dictated and Authenticated by: Polo Omalley MD. Lab Data Lab results reviewed: Yes I reviewed the patient's lab results. Quality:SDOH Health Related Social Needs: No Data to Display PFSH All Active Problems Sciatica, left side (Acute) Serum lipase elevation (Chronic) Increased body mass index (BMI) (Acute) GERD (gastroesophageal reflux disease) (Chronic) Alcohol use disorder (Acute) Dilated bile duct (Acute) Hyperplastic colon polyp (Acute) Cholelithiasis (Acute) Diverticula of colon (Acute) Essential hypertension (Chronic 11/24/12) Medical History Grief Headache Chest pain (06/27/12) atypical Pt. states nothing came of it from cardiac work up Surgical History S/P laparoscopic cholecystectomy (~01/26/23) Status post repair of anterior cruciate ligament Status post total right knee replacement DOS: 02/17/17 Dr. Russell Replacement of total knee joint (02/17/17) (R) DR. RUSSELL Repair, ACL (~12/1996) [place]-acl replacement of right knee Family History Mother , 63 Cancer Father , 63 Essential hypertension Heart disease Pancreatic cancer Sister No problems noted. Sister , 40 No problems noted. Brother No problems noted. Brother Hyperlipidemia Maternal Grandfather , 72 Heart disease Paternal Grandfather , 70 Neoplasm Maternal Grandmother , 93 Diabetes Paternal Grandmother , 90 Diabetes Son Asthma Daughter Depression Brother No problems noted. Social History Smoking/Tobacco Use Status: Former Tobacco Use tobacco type: cigarettes and cigars Quit Date: 02/29/92 Smokeless tobacco user: snuff Second Hand Exposure: Yes Smoking risk assessment performed?: Yes Alcohol Intake: current Alcohol Intake frequency: a few times a week Alcohol type: beer Drug use: Never Substance use type: does not use Caregiver/Support person: No Household members: children Housing: apartment Communication Needs: None Do you need help understanding health information?: Never current occupation: B[employer] Pets and animals: Yes Pets and animals: cat(s) Sexually active: Yes Do you think of yourself as: straight/heterosexual Current gender identity: male What is your relationship status?: How often do you talk on the phone with friends or family?: once per week How often do you get together with friends or relatives?: once per week How often do you attend worship or confucianism services?: 1-3 times per year Do you belong to any clubs or organized social groups?: yes Panel score (0-1 are the most socially isolated patients): 1 What type of physical activity do you participate in: other Details: golf, bowling Duration: 15-30 minutes/day Frequency: 5-6 times per week Alana/Congregation: [employer] Special alana needs: No Seatbelt use: always Helmet use: Yes Helmet use: always Drive intox or ride w/intox compactor driver: No Do you feel safe at home: Yes Do you feel safe in your relationship?: Yes Victim of physical abuse: No Victim of emotional abuse: No Victim of sexual abuse: No Sign Out Sign Out Data: Sign Out Comment: Patient pending delta troponin and disposition. Suspect epigastric pain/gastritis secondary to regular alcohol intake, caffeine use, and other potential dietary contributing factors. Last updated by Mike Rojas NP at 05/28/23 15:40 PAWSS Have you Been Recently Intoxicated or Drunk Within the Last 30 days?: No Have you Ever Experienced Previous Episodes of Alcohol Withdrawal?: No Have you ever Experienced Withdrawal Seizures?: No Have you ever Experienced Delirium Tremens(DT)s?: No Have you ever undergone Alcohol Rehabilitation Treatment (i.e, inpt ot outpatient treatment programs)?: No Have you ever Experienced Blackouts?: No Have you ever Combined Alcohol with other Downers within the last 90 days?: No Have you ever Combined Alcohol with any other Substance of Abuse during the last 90 days?: No Positive Blood Alcohol level on Presentation? [PCS.BAL]: No Evidence of Increased Autonomic Activity (i.e. HR>120, tremor, sweating, agitation, nausea)?: No Result: 0
[2023-05-28 14:49] VITALS: BP 134/85; PULSE 65; RESP 18; O2SAT 97
--- NOTE | 2023-05-28 14:55 | DI.VRAD_ITS ---
PROCEDURE INFORMATION: Exam: CTA Chest With Contrast CTA Abdomen and Pelvis With Contrast Exam date and time: 05/28/2023 1:58 PM Age: 57 years old Clinical indication: Injury or trauma; Other: Epigastric pain, diaphoresis; Prior surgery; Surgery date: 6+ months; Surgery type: Cholecystectomy TECHNIQUE: Imaging protocol: Computed tomographic angiography of the chest with contrast. Exam focused on the arteries. Computed tomographic angiography of the abdomen and pelvis with contrast. Exam focused on the arteries. 3D rendering (Not supervised by radiologist): MIP and/or 3D reconstructed images were created by the technologist. Contrast material: OMNIPAQUE 350; Contrast volume: 100 ml; Contrast route: INTRAVENOUS (IV); COMPARISON: CT THORAX ABD/PEL CTA 04/22/2019 4:57 AM FINDINGS: VASCULATURE: Pulmonary arteries: Normal. No pulmonary emboli. Aorta: No aortic aneurysm. No aortic dissection. Celiac trunk and mesenteric arteries: No occlusion or significant stenosis. Renal arteries: No occlusion or significant stenosis. Right iliac arteries: No occlusion or significant stenosis. Left iliac arteries: No occlusion or significant stenosis. CHEST: Lungs: No lobar consolidations. Minimal reticulation in the dependent portions of the lungs consistent with subsegmental atelectasis. Few scattered calcified Pleural spaces: Unremarkable. No pneumothorax. No pleural effusion. Heart: Unremarkable. No cardiomegaly. No pericardial effusion. ABDOMEN AND PELVIS: Liver: Lucencies in the liver cysts. The largest measures 1.5 cm in the lateral portion of the right lobe. No solid masses. Gallbladder and bile ducts: There has been a cholecystectomy. There is no common bile duct dilation. Pancreas: Unremarkable. No mass. No ductal dilation. Spleen: Unremarkable. No splenomegaly. Adrenal glands: Unremarkable. No mass. Kidneys and ureters: No hydronephrosis or nephrolithiasis. The right kidney has a 1.5 cm simple appearing cyst along its lateral cortex. The left kidney has additional simple cysts. The largest measures 2.2 cm. No follow up imaging is recommended. Stomach and bowel: Unremarkable. No obstruction. No mucosal thickening. Appendix: No evidence of appendicitis. Intraperitoneal space: Unremarkable. No free air. No significant fluid collection. Urinary bladder: Unremarkable. No mass. Reproductive: Unremarkable as visualized. Lymph nodes: Unremarkable. No enlarged lymph nodes. Bones/joints: Unremarkable. No acute fracture. Soft tissues: Unremarkable. IMPRESSION: 1. Examination negative for pulmonary emboli, aortic aneurysm or dissection. 2. No acute findings. Dictated and Authenticated by: Polo Omalley MD. Ordering:DUDLEY Mckeon MD
[2023-05-28] MEDS: Esomeprazole 20 MG CAPCR PO (15:43)
--- NOTE | 2023-05-28 15:50 | ED.PROG_ITS ---
Date of service: 05/28/23 Time of Service: 15:50 Medical Decision Making Care assumed from provider (Hardy Rojas, JARED) Please see their initial HPI, PE, and documentation. Discussed patient details and case and pending workup and disposition. Patient is hemodynamically stable, and alert and oriented. At the time of signout awaiting repeat troponin level, patient had a workup including CTA chest abdomen pelvis. Initial troponin within normal limits. Magnesium slightly low at 1.7 AST and ALT slightly elevated. Second troponin WNL, will plan to DC patient home with close follow up. This text was generated using [employer] system, please disregard any oddities of phrase or misspellings. Lab Data Lab results reviewed: Yes I reviewed the patient's lab results. Labs: Laboratory Tests Range/Units 05/28/23 05/28/23 12:41 15:45 WBC (4.4-10.8) 10^3/uL 7.95 RBC (4.36-5.78) 10^6/uL 4.82 Hgb (13.5-17.5) g/dL 14.3 Hct (40.0-50.0) % 42.9 MCV (80-95) fL 89 MCH (27.0-33.0) pg 29.7 MCHC (32.0-36.0) % 33.3 RDW (11.8-14.1) % 12.2 Plt Count (130-400) 10^3/uL 344 MPV (8.0-11.0) fL 9.5 Immature Gran % 0.3 Neutrophils % 45.6 Lymphocytes % 38.0 Monocytes % 12.7 Eosinophils % 3.0 Basophils % 0.4 Nucleated RBC % (0.0-0.3) % 0.0 Absolute Neutrophils (1.2-6.7) 10^3/uL 3.63 Absolute Lymphocytes (1.2-3.4) 10^3/uL 3.02 Absolute Monocytes (0.1-0.8) 10^3/uL 1.01 H Absolute Eosinophils (0.0-0.7) 10^3/uL 0.24 Absolute Basophils (0.0-0.2) 10^3/uL 0.03 Sodium (136-145) mmol/L 138 Potassium (3.5-5.1) mmol/L 3.1 L Chloride (98-107) mmol/L 101 Carbon Dioxide (21.0-32.0) mmol/L 27.8 Anion Gap (3-11) mmol/L 9.2 BUN (7-18) mg/dL 17 Creatinine (0.70-1.30) mg/dL 1.2 Est GFR (CKD-EPI 2020) (mL/min/1.73m2) 71.42 Glucose (74-106) mg/dL 143 H Calcium (8.5-10.1) mg/dL 9.5 Magnesium (1.8-2.4) mg/dL 1.7 L Total Bilirubin (0.2-1.0) mg/dL 1.0 AST (15-37) U/L 103 H ALT (16-63) U/L 87 H Alkaline Phosphatase (46-116) U/L 82 Troponin I (< or =60) ng/L < 50 < 50 Total Protein (6.4-8.2) g/dL 8.3 H Albumin (3.4-5.0) g/dL 3.8 Lipase (16-77) U/L 56 Quality:[facility] Health Related Social Needs: No Data to Display Sign Out Sign Out Data: Sign Out Comment: Patient pending delta troponin and disposition. Suspect epigastric pain/gastritis secondary to regular alcohol intake, caffeine use, and other potential dietary contributing factors. Last updated by Mike Rojas NP at 05/28/23 15:40 Discharge Plan Disposition Patient Disposition: Home Condition: Stable Discharge Details Clinical Impression: Epigastric abdominal pain Primary Care Provider: Nik Toledo ED Provider: Wendy Donnelly Home Meds and New Rx's Prescriptions: Continued amiloride 5 mg tablet 2.5 mg PO BID Patient Comments: 03/02/2023 Per [facility] [place] -hb amlodipine 5 mg tablet 10 mg PO DAILY Qty: 90 3RF Rx Instructions: 03/02/23. Per [facility] [place]. -hb eplerenone 50 mg tablet 50 mg PO BID Patient Comments: 03/02/23 Per [facility] [place]. Take 100mg AM and 50mg PM. -hb minoxidil 2.5 mg tablet 2.5 mg PO BID Patient Comments: TAKE 1 TABLET BY MOUTH TWICE DAILY amiloride-hydrochlorothiazide 5-50 mg tablet 1 tab PO DAILY Patient Comments: TAKE 1 TABLET BY MOUTH ONCE DAILY metoprolol succinate 100 mg tablet extended release 24 hr 100 mg PO DAILY Qty: 90 3RF ibuprofen 600 mg tablet 600 mg PO TID PRN Discharge Instructions Instructions: Epigastric Pain (ED) Additional Instructions: No evidence of cardiac injury at this time. Please take Prilosec or similar or Maalox [id number]. Follow up with primary care provider in 3-5 days. Return to ED sooner if any worsening or concerns. Referrals: Nik Toledo NP [Primary Care Provider] - 3 days Discharge Data Discharge Date/Time-TO BE ENTERED AT DEPARTURE: 05/28/23 16:34
[2023-05-28 16:11] LABS: Troponin I < 50 ng/L (< or =60)
[2023-05-28 16:35] VITALS: BP 134/85; PULSE 64; RESP 18; O2SAT 98
== END 2023-05-28 16:34 | disposition home or self-care (01) ==
PROVIDERS: Nurse Practitioner Family; Emergency Provider Registered Nurse Emergency; PCP Nurse Practitioner Family
DX: R10.13 Epigastric pain (principal); I10 Essential (primary) hypertension; Z87.891 Personal history of nicotine dependence
CPT/HCPCS: 00123; 71275; 80053; 83690; 93005; 99285; 74174; 83735; 84484; 85025; 93010; 99284; J3490

== ENCOUNTER 2023-07-27 08:08 | Outpatient (CLI) | payer BC, SELFPAY ==
[2023-07-27 08:20] LABS: Prothrombin Time 10.5 sec (9.1-11.1)
[2023-07-27 09:12] LABS: ALT 54 U/L (16-63); AST 28 U/L (15-37); Albumin 3.4 g/dL (3.4-5.0); Alkaline Phosphatase 57 U/L (46-116); Bilirubin, Direct 0.2 mg/dL (0.0-0.2); Bilirubin, Total 0.4 mg/dL (0.2-1.0); C-Reactive Protein 0.59 mg/dL (<or=0.5); Lipase 47 U/L (16-77); Total Protein 7.6 g/dL (6.4-8.2)
[2023-07-27 09:50] LABS: Ferritin 28 ng/mL (26-388); Folate 17.5 ng/mL (8.6-20.0); Vitamin B12 160 pg/mL (193-986)
[2023-07-28 13:50] LABS: ANA Interpretation Negative (Negative)
== END 2023-07-27 08:09 | disposition home or self-care (01) ==
LOC: LBO 08:11
PROVIDERS: PCP Nurse Practitioner Family; Visit Provider Surgery
DX: I10 Essential (primary) hypertension (principal); K21.9 Gastro-esophageal reflux disease without esophagitis; K57.30 Diverticulosis of large intestine without perforation or abscess without bleeding; R79.89 Other specified abnormal findings of blood chemistry; Z90.49 Acquired absence of other specified parts of digestive tract
CPT/HCPCS: 36415; 80076; 83690; 82607; 82728; 82746; 85610; 86038; 86140

== ENCOUNTER 2024-01-20 12:56 | Outpatient (CLI) | payer BC, SELFPAY ==
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
== END 2024-01-20 13:16 ==
LOC: DI 12:59
PROVIDERS: PCP Nurse Practitioner Family; Visit Provider Nurse Practitioner Family
DX: S42.024D Nondisplaced fracture of shaft of right clavicle, subsequent encounter for fracture with routine healing (principal); X58.XXXD Exposure to other specified factors, subsequent encounter
CPT/HCPCS: 73000

== ENCOUNTER 2024-05-31 01:29 | Outpatient (CLI) | payer BC, SELFPAY ==
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
== END 2024-05-31 01:49 ==
LOC: DI 01:29
PROVIDERS: PCP Nurse Practitioner Family; Visit Provider Nurse Practitioner Family
DX: M95.8 Other specified acquired deformities of musculoskeletal system (principal)
CPT/HCPCS: 73000

== ENCOUNTER 2024-06-29 08:39 | Outpatient (CLI) | payer BC, SELFPAY ==
[2024-06-29 12:40] LABS: Hemoglobin A1C 5.5 % (<5.7)
[2024-06-29 13:06] LABS: ALT 42 U/L (16-63); AST 27 U/L (15-37); Albumin 3.6 g/dL (3.4-5.0); Alkaline Phosphatase 63 U/L (46-116); Anion Gap 8.1 mmol/L (3-11); BUN 19 mg/dL (7-18); Bilirubin, Total 0.4 mg/dL (0.2-1.0); CO2 28.9 mmol/L (21.0-32.0); Calcium 9.9 mg/dL (8.5-10.1); Calculated LDL 110 mg/dL (<100); Chloride 101 mmol/L (98-107); Cholesterol 192 mg/dL (<200); Estimated GFR 88.33 (mL/min/1.73m2); Glucose 98 mg/dL (74-106); HDL Cholesterol 63 mg/dL (>or=40); Potassium 3.6 mmol/L (3.5-5.1); Sodium 138 mmol/L (136-145); Total Protein 8.1 g/dL (6.4-8.2); Triglyceride 95 mg/dL (<150); Vitamin B12 181 pg/mL (193-986)
[2024-06-29 19:56] LABS: PSA, Screening 0.5 ng/mL (<=3.5)
== END 2024-06-29 08:40 | disposition home or self-care (01) ==
LOC: LOS 08:41
PROVIDERS: PCP Nurse Practitioner Family; Referring Provider Nurse Practitioner Family; Visit Provider Nurse Practitioner Family
DX: R79.89 Other specified abnormal findings of blood chemistry (principal); Z13.1 Encounter for screening for diabetes mellitus; Z13.220 Encounter for screening for lipoid disorders; Z12.5 Encounter for screening for malignant neoplasm of prostate; E53.8 Deficiency of other specified B group vitamins
CPT/HCPCS: 36415; 80053; 80061; 84153; 82607; 83036

== ENCOUNTER 2024-10-05 23:50 | Emergency (ER) | payer BC, SELFPAY ==
[2024-10-05 23:58] VITALS: BP 161/82; PULSE 74; RESP 16; O2SAT 97
--- NOTE | 2024-10-06 00:09 | W.ED.GENAD ---
Discharge Plan Disposition Patient Disposition: Home Condition: Good Discharge Details Clinical Impression: Acute urticaria Primary Care Provider: Nik Toledo ED Provider: Tony Morris Home Meds and New Rx's Prescriptions: New prednisone 50 mg tablet 50 mg PO DAILY Qty: 5 0RF loratadine 10 mg tablet 10 mg PO DAILY Qty: 14 0RF No Action amiloride 5 mg tablet 2.5 mg PO BID Patient Comments: 03/02/2023 Per [facility] Nephrology. -hb amlodipine 5 mg tablet 5 mg PO DAILY Qty: 90 3RF sucralfate [Carafate] 1 gram tablet 1 g PO QHS Qty: 90 12RF tamsulosin [Flomax] 0.4 mg capsule 0.4 mg PO DAILY Qty: 90 1RF eplerenone 50 mg tablet 50 mg PO BID Patient Comments: 03/02/23 Per [facility] Urology. Take 100mg AM and 50mg PM. -hb minoxidil 2.5 mg tablet 2.5 mg PO BID Patient Comments: TAKE 1 TABLET BY MOUTH TWICE DAILY amiloride-hydrochlorothiazide 5-50 mg tablet 1 tab PO DAILY Patient Comments: TAKE 1 TABLET BY MOUTH ONCE DAILY mecobalamin (vitamin B12) 5,000 mcg tablet,disintegrating 5,000 mcg PO DAILY Qty: 90 1RF metoprolol succinate 100 mg tablet extended release 24 hr 100 mg PO DAILY Qty: 90 3RF esomeprazole magnesium [Nexium] 20 mg capsule,delayed release(DR/EC) 20 mg PO DAILY Qty: 90 3RF Discharge Instructions Instructions: Hives, How to use an epinephrine autoinjector Additional Instructions: At this time you have evidence of notable hives on your body. It is not clear what necessarily caused these, but they do need to be treated. Thankfully there is no evidence to suggest anaphylaxis or severe allergic reaction requiring epinephrine. Please take the prednisone as prescribed. It has been sent to your pharmacy on file. Please take the loratadine 10 mg every day, for the next 1 to 2 weeks or until your symptoms resolve. Please take 25-50 mg of Benadryl at night to help with the rash. This will make you very sleepy. We are sending you home with an EpiPen. For the very unlikely scenario that you develop Difficulty breathing or tongue swelling, please take the epinephrine if this does occur. If you notice any worsening of your symptoms, or any new symptoms such as vomiting, diarrhea, fever, chills, shortness of breath, chest pain, numbness, weakness, or fainting , please return immediately to the emergency department for reevaluation. Please follow up with your primary care provider as soon as possible for reassessment and reevaluation. As always, it was a pleasure participating in your medical care today. Referrals: Nik Toledo NP [Primary Care Provider, Medicine] [facility] General Date/Time Provider Initiated Documentation: 10/05/24 23:54. HPI Narrative: This is a 59-year-old male with past medical history of hypertension, GERD, who is not on an BRADY inhibitor or an ARB, who presents today for hives. Patient states that over the last week he initially developed a very small amount of hives around his waistband, and they have progressed and extended over his chest abdomen pelvis legs arms up to his neck and to the corner of the left lower lip. He denies any tongue swelling, difficulty breathing, or swallowing. He denies any nausea vomiting or diarrhea. He denies any excessive bug bites, tick bites, new detergents, soaps, foods, or other components. 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 He admits to extreme itchiness of the welts, but denies any other symptoms. He has never had symptoms like this before. No other complaints at this time. Related Data Home Medications ?Medication ?Instructions ?Recorded ?Confirmed eplerenone 50 mg tablet 50 mg PO BID 02/17/22 10/06/24 amiloride 5 mg-hydrochlorothiazide 1 tab PO DAILY 03/07/23 10/06/24 50 mg tablet minoxidil 2.5 mg tablet 2.5 mg PO BID 03/07/23 10/06/24 amiloride 5 mg tablet 2.5 mg PO BID 04/28/23 10/06/24 amlodipine 5 mg tablet 5 mg PO DAILY #90 tabs 04/06/24 10/06/24 sucralfate 1 gram tablet (Carafate) 1 g PO QHS #90 tabs 04/06/24 10/06/24 mecobalamin (vitamin B12) 5,000 5,000 mcg PO DAILY #90 tabs 07/04/24 10/06/24 mcg disintegrating tablet metoprolol succinate 100 mg 100 mg PO DAILY #90 tabs 25 10/06/24 tablet,extended release 24 hr tamsulosin 0.4 mg capsule (Flomax) 0.4 mg PO DAILY #90 caps 07/09/24 10/06/24 esomeprazole magnesium 20 mg 20 mg PO DAILY #90 caps 10/03/24 10/06/24 capsule,delayed release (Nexium) loratadine 10 mg tablet 10 mg PO DAILY #14 tabs 10/06/24 prednisone 50 mg tablet 50 mg PO DAILY #5 tabs 10/06/24 Previous Rx's ?Medication ?Instructions ?Recorded amlodipine 5 mg tablet 5 mg PO DAILY #90 tabs 04/06/24 sucralfate 1 gram tablet (Carafate) 1 g PO QHS #90 tabs 04/06/24 mecobalamin (vitamin B12) 5,000 5,000 mcg PO DAILY #90 tabs 07/04/24 mcg disintegrating tablet metoprolol succinate 100 mg 100 mg PO DAILY #90 tabs 07/09/24 tablet,extended release 24 hr tamsulosin 0.4 mg capsule (Flomax) 0.4 mg PO DAILY #90 caps 07/09/24 esomeprazole magnesium 20 mg 20 mg PO DAILY #90 caps 10/03/24 capsule,delayed release (Nexium) loratadine 10 mg tablet 10 mg PO DAILY #14 tabs 10/06/24 prednisone 50 mg tablet 50 mg PO DAILY #5 tabs 10/06/24 Allergies Allergy/AdvReac Type Severity Reaction Status Date / Time dermabond AdvReac Mild Hives Uncoded 10/06/24 00:00 General Stated Complaint: RashLesion JOSE LUIS: 4 Exam Narrative Exam Narrative: 1.Const: Well-nourished, Well-developed, appearing stated age 2.Eyes: PERRL, no conjunctival injection, and symmetrical lids. 3.ENT: Atraumatic external nose and ears. Moist MM. Neck: Symmetric, trachea midline, No thyromegaly. 4.CVS: +S1/S2, Peripheral pulses 2+ and equal in all extremities. Brisk capillary refill in all extremities. 5.RESP: Unlabored respiratory effort. Clear to auscultation bilaterally. No wheezes rales or rhonchi 6.GI: Soft, Nontender/Nondistended, No hepatosplenomegaly. No guarding or rebound. 7.MSK: Normocephalic/Atraumatic, Extremities w/o deformity or ttp No cyanosis or clubbing, Normal movement of all extremities 8.Skin: Warm, Dry. Patient demonstrates scattered hives all over his body, there is some confluence between certain ones, and others are isolated. They are all raised, with an erythematous well-demarcated border. There is minimal central clearing. Negative Nikolsky sign. No large vesicles or bulla. No palpable purpura. No oral lesions. No mucosal lesions. No evidence of severe cellulitis. No evidence of vaccine preventable rash. No evidence of rash on his palms or soles. No penile rash. 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 Sensation grossly intact, no focal neurologic deficits. 10.Psych: (AAO) x3. Appropriate mood and affect Course Vital Signs Vital signs: Vital Signs Pulse 74 10/05/24 23:58 Respiratory Rate 16 10/05/24 23:58 Blood Pressure 161/82 H 10/05/24 23:58 Pulse Oximetry 97 10/05/24 23:58 Pulse 74 10/05/24 23:58 Respiratory Rate 16 10/05/24 23:58 Blood Pressure 161/82 H 10/05/24 23:58 Blood Pressure Position Sitting 10/05/24 23:58 Pulse Oximetry 97 10/05/24 23:58 Oxygen Delivery Method Room Air 10/05/24 23:58 Oxygen Flow Rate 0 10/05/24 23:58 Medical Decision Making This is a 59-year-old male with past medical history of hypertension, GERD, who is not on an BRADY inhibitor or an ARB, who presents today for hives. Patient states that over the last week he initially developed a very small amount of hives around his waistband, and they have progressed and extended over his chest abdomen pelvis legs arms up to his neck and to the corner of the left lower lip. He denies any tongue swelling, difficulty breathing, or swallowing. He denies any nausea vomiting or diarrhea. He denies any excessive bug bites, tick bites, new detergents, soaps, foods, or other components. 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 He admits to extreme itchiness of the welts, but denies any other symptoms. He has never had symptoms like this before. No other complaints at this time. Patient demonstrates scattered hives all over his body, there is some confluence between certain ones, and others are isolated. They are all raised, with an erythematous well-demarcated border. There is minimal central clearing. Negative Nikolsky sign. No large vesicles or bulla. No palpable purpura. No oral lesions. No mucosal lesions. No evidence of severe cellulitis. No evidence of vaccine preventable rash. No evidence of rash on his palms or soles. No penile rash. Signs and symptoms appear to be consistent with notable urticaria and hives, potentially route service representative of urticaria multiforme. No current clinical evidence of staph scalded skin syndrome, erythema multiforme, erythema migrans, toxic epidermal necrolysis, [place] syndrome, Kawasaki-like rash, meningococcemia, pemphigus vulgaris, or necrotizing fasciitis. No evidence of angioedema. No evidence of airway compromise. Will give the patient IM Solu-Medrol, Benadryl, and loratadine. Will give an EpiPen for home out of an abundance of caution. No evidence to suggest airway compromise or angioedema requiring emergent reversal agents. Will recommend continued steroids and antihistamine therapy. If the patient notices worsening of his symptoms we do recommend prompt return. Otherwise recommend continue ration of medications until symptoms resolve. Discussed red flags for which to return. I have extensively reviewed the treatment plan and discharge instructions with the patient. I have addressed all patient concerns at this time. The patient was made aware of what symptoms to monitor for that would warrant a return to the emergency department. Discussed the plan with the patient, they demonstrate verbal understanding and agreement with our assessment and plan at this time. The documentation in this chart was dictated using [employer] dictation software. Please excuse any dictation errors. PFSH All Active Problems (Updated 10/06/24 @ 00:10 by Tony Morris DO) Acute urticaria (Acute) Perineal pain (Acute) Painful ejaculation (Acute) B12 deficiency (Acute) Deformity, clavicle (Acute) Mass of skin (Acute) Elevated LFTs (Acute) Sciatica, left side (Acute) Serum lipase elevation (Chronic) Increased body mass index (BMI) (Acute) GERD (gastroesophageal reflux disease) (Chronic) Alcohol use disorder (Acute) Dilated bile duct (Acute) Hyperplastic colon polyp (Acute) Cholelithiasis (Acute) Diverticula of colon (Acute) Essential hypertension (Chronic 11/24/12) Medical History Grief Headache Chest pain (06/27/12) atypical Pt. states nothing came of it from cardiac work up Surgical History S/P laparoscopic cholecystectomy (~01/26/23) Status post repair of anterior cruciate ligament Status post total right knee replacement DOS: 02/17/17 Dr. Russell Replacement of total knee joint (02/17/17) (R) DR. RUSSELL Repair, ACL (~12/1996) [place]-acl replacement of right knee Family History Mother , 63 Cancer Father , 63 Essential hypertension Heart disease Pancreatic cancer Sister No problems noted. Sister , 40 No problems noted. Brother No problems noted. Brother Hyperlipidemia Maternal Grandfather , 72 Heart disease Paternal Grandfather , 70 Neoplasm Maternal Grandmother , 93 Diabetes Paternal Grandmother , 90 Diabetes Son Asthma Daughter Depression Brother No problems noted. 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 Pets and animals: Yes Pets and animals: cat(s) Sexually active: Yes Do you think of yourself as: straight/heterosexual Current gender identity: male What is your relationship status?: How often do you talk on the phone with friends or family?: once per week How often do you get together with friends or relatives?: once per week How often do you attend presybeterian or baptist services?: 1-3 times per year Do you belong to any clubs or organized social groups?: yes Panel score (0-1 are the most socially isolated patients): 1 What type of physical activity do you participate in: other Details: golf, bowling Duration: 15-30 minutes/day Frequency: 5-6 times per week Alana/Roman Catholic: Uatsdin Special alana needs: No Seatbelt use: always Helmet use: Yes Helmet use: always Drive intox or ride w/intox cab driver: No Do you feel safe at home: Yes Do you feel safe in your relationship?: Yes Victim of physical abuse: No Victim of emotional abuse: No Victim of sexual abuse: No
[2024-10-06] MEDS: diphenhydrAMINE 25 MG CAP 50 MG PO (00:30)
[2024-10-06] MEDS: EPINEPHrine 0.3 MG KIT IM (00:31)
[2024-10-06] MEDS: Loratidine 10 MG TAB PO (00:31)
[2024-10-06] MEDS: methylPREDNISolone SUCC 125 MG VIAL IM (00:31)
== END 2024-10-06 00:34 | disposition home or self-care (01) ==
LOC: ER 10-06 00:36
PROVIDERS: Emergency Provider Student in an Organized Health Care Education/Training Program; PCP Nurse Practitioner Family
DX: L50.8 Other urticaria (principal)
CPT/HCPCS: 99283; 99284; 96372; J0165; J2919